=== PATIENT | female | born 1965 | race Caucasian/White ===

== ENCOUNTER 2016-06-09 12:49 | Emergency (ER) | payer OTHER ==
[~2016-06-09] VITALS: Ht 157.5 cm; Wt 52.0 kg
[~2016-06-09 12:49] MED LIST: DICY10CA60 PO; DIVA500T7 PO; LEVO25TA50 PO; LEVO500T72 PO; NITR-58 PO; ONDA4TAB14 PO; PRED20 PO
[2016-06-09 12:55] VITALS: Ht 157.5 cm; Wt 52.0 kg
[2016-06-09] MEDS ORDERED: LORAZEPAM 1 MG TAB PO ONE (14:00)
--- NOTE | 2016-06-09 14:08 | ERD ---
ER Documentation Chief Complaint Date/Time DATE: 06/09/16 TIME: 14:08 Chief Complaint pt bib son with possible allergic reaction to levaquin HPI This is a 51-year-old female with history of COPD, paranoid schizophrenia, bipolar disorder, hypothyroidism, smoking abuse presenting to the emergency room brought in by son stating that she feels as if her mouth is numb bilaterally and that she has slurred speech because she feels like her throat is closing which comes and goes. Patient states that last for a few seconds and then goes away. Patient was speaking clearly in the ER room. She states that on June she was seen by her primary care doctor in which they gave her Levaquin for possible pneumonia. Patient initially thought that this may be due to a allergic reaction. She denies any trouble breathing, chest pain , rash or itchiness. Patient denies any suicidal ideation or homicidal ideation ROS All systems reviewed and are negative except as per history of present illness. Medications Home Meds Active Scripts Ondansetron (Ondansetron Odt) 4 Mg Tab.rapdis, 4 MG PO Q6H Y for NAUSEA AND/OR VOMITING, #10 TAB Prov:YOHAN CASTANEDA PA-C 05/02/16 Dicyclomine Hcl* (Bentyl*) 10 Mg Capsule, 10 MG PO QID, #12 CAP Prov:YOHAN CASTANEDA PA-C 05/02/16 Nitrofurantoin Monohyd Macrocr* (Macrobid*) 100 Mg Capsr, 100 MG PO BID for 7 Days, CAP Prov:YOHAN CASTANEDA PA-C 05/02/16 Prednisone (Prednisone) 20 Mg Tab, 40 MG PO DAILY for 5 Days, TAB Prov:LALO EVANS MD 07/15/15 Levofloxacin* (Levaquin*) 500 Mg Tablet, 500 MG PO DAILY for 5 Days, TAB Prov:LALO EVANS MD 07/15/15 Reported Medications Levothyroxine Sodium* (Levoxyl*) 25 Mcg Tablet, PO BEFORE BREAKFAST, #30 TAB 07/12/15 Divalproex Sodium* (Depakote*) 500 Mg Tablet.dr, 500 MG PO BID, #120 TAB 07/12/15 Allergies Allergies: Coded Allergies: Penicillins (Verified Allergy, Severe, SWOLLEN THROAT, 04/05/16) PMhx/Soc History of Surgery: Yes (SOILA ) Anesthesia Reaction: No Hx Neurological Disorder: No Hx Respiratory Disorders: No Hx Cardiac Disorders: Yes (HTN) Hx Psychiatric Problems: Yes (SCHIZOPHRENIC, BIPOLAR) Hx Miscellaneous Medical Probl: Yes (HYPOTHYROIDISM, ) Hx Alcohol Use: No Hx Substance Use: No Hx Tobacco Use: Yes (1/2 PACK PER DAY) Smoking Status: Current every day smoker Physical Exam Vitals Vital Signs Date Time Temp Pulse Resp B/P Pulse Ox O2 Delivery O2 Flow Rate FiO2 06/09/16 12:55 98.3 64 20 128/70 96 Physical Exam GENERAL: well-developed/well-nourished, in no apparent distress, non-toxic appearing HENT: NC/AT, bilateral tympanic membrane is normal with good cone of light, nares patent, patient did not have any teeth EYES: Conjunctiva normal, PERRLA, EOMI, no nystagmus noted NECK: Supple, no lymphadenopathy PULM: CTA bilaterally, no rales, rhonchi, or wheezing heard CV: Normal S1S2, RRR, good capillary refill GI: Soft, non-distended, normal bowel sounds, non-tender BACK: No midline tenderness, no masses, No CVAT EXT: No clubbing, cyanosis, or edema NEURO: Alert and orientated to person, place, and time. CN II-IIX intact. Gait and coordination were normal. Hand oyster preparer strength were equal and within normal limits SKIN: Intact, normal turgor PSYCH: Normal mood and mentation, patient denied SI Result Diagram: 06/09/16 1439 06/09/16 1439 Results 24 hrs Laboratory Tests Test 06/09/16 14:39 Alanine Aminotransferase (ALT/SGPT) 22IU/L Albumin 3.6g/dl Albumin/Globulin Ratio 1.28 Alkaline Phosphatase 77IU/L Anion Gap 18 Aspartate Amino Transf (AST/SGOT) 18IU/L Basophils # 0.010^3/ul Basophils % 0.3% Blood Urea Nitrogen 7mg/dl Calcium Level 9.2mg/dl Carbon Dioxide Level 30mmol/L Chloride Level 101mmol/L Creatinine 0.72mg/dl Direct Bilirubin 0.00mg/dl Eosinophils # 0.210^3/ul Eosinophils % 2.9% Globulin 2.80g/dl Glucose Level 96mg/dl Hematocrit 44.7% Hemoglobin 15.2g/dl Indirect Bilirubin 0.6mg/dl Lymphocytes # 1.810^3/ul Lymphocytes % 23.4% Mean Corpuscular Hemoglobin 30.6pg Mean Corpuscular Hemoglobin Concent 34.1g/dl Mean Corpuscular Volume 89.8fl Mean Platelet Volume 7.9fl Monocytes # 0.810^3/ul Monocytes % 10.1% Neutrophils # 4.910^3/ul Neutrophils % 63.3% Nucleated Red Blood Cells # 0.010^3/ul Nucleated Red Blood Cells % 0.0/100WBC Platelet Count 92194^3/UL Potassium Level 4.2mmol/L Red Blood Count 4.9810^6/ul Red Cell Distribution Width 13.1% Sodium Level 145mmol/L Total Bilirubin 0.6mg/dl Total Protein 6.4g/dl Troponin I < 0.012ng/ml White Blood Count 7.710^3/ul Current Medications Medications (Trade) Dose Ordered Sig/Wilmar Route PRN Reason Start Time Stop Time Status Last Admin Dose Admin Lorazepam (Ativan) 1 mg ONCE ONCE PO 06/09/16 14:00 06/09/16 14:01 DC 06/09/16 14:27 PROCEDURE: XR Chest. CLINICAL INDICATION: Cough TECHNIQUE: A single portable view of the chest was obtained. COMPARISON: 07/12/2015 FINDINGS: The cardiomediastinal silhouette is within normal limits. The lungs and pleural spaces are clear. The soft tissues and osseous structures are unremarkable. IMPRESSION: No acute cardiopulmonary disease. RPTAT: HPNM Physician Ramon Date Time Electronically viewed and signed by Enrique Dillard Physician on 06/09/2016 14 :12 / CC: HYACINTH CAZARES PA-C Procedures/MDM This is a 51-year-old female with history of COPD, paranoid schizophrenia, bipolar disorder, hypothyroidism, smoking abuse presenting to the emergency room brought in by son stating that she feels as if her mouth is numb bilaterally and that she has slurred speech because she feels like her throat is closing which comes and goes. I have a low suspicion for anaphylaxis, TIA, stroke, ACS. Patient had a normal neurological exam in the ED, she was speaking clearly, patient did seem to be clinically anxious. I have given patient 1 mg Ativan p.o. and reassessed her and she felt a lot better and symptoms resolved. I have consulted my supervising physician Dr. Daigle who also evaluated the patient and spent lengthy discussion speaking to the patient and son. CXR: No acute cardiopulmonary disease. EKG: read and signed off by myself and Dr. Daigle Rate/Rhythm: Normal Sinus Rhythm at 87 bpm QRS, ST, T-waves: T-wave inversion in V1 and aVR Impression: No evidence of ischemia or arrhythmia Troponin negative Lab work was drawn. CBC did not show any evidence of leukocytosis or anemia. CMP did not show any evidence of renal, liver, or electrolyte abnormalities. Lipase was normal. Patient is suitable to follow-up with her primary care physician for further evaluation management. Discussed return to the ER for any worsening signs or symptoms. Patient understands and agrees with this plan. Dr. Daigle was consulted and evaluated patient and agrees with plan above Departure Diagnosis: Primary Impression: Jaw pain Condition: Stable HYACINTH CAZARES PA-C Jun 09, 2016 14:08
--- NOTE | 2016-06-09 14:12 | RADRPT ---
PROCEDURE: XR Chest. CLINICAL INDICATION: Cough TECHNIQUE: A single portable view of the chest was obtained. COMPARISON: 07/12/2015 FINDINGS: The cardiomediastinal silhouette is within normal limits. The lungs and pleural spaces are clear. The soft tissues and osseous structures are unremarkable. IMPRESSION: No acute cardiopulmonary disease. RPTAT: HPNM Physician Ramon Date Time Electronically viewed and signed by Enrique Dillard Physician on 06/09/2016 14:12 /
[2016-06-09 15:22] LABS: BASOPHILS % 0.3 % (0.0-2.0); EOSINOPHILS # 0.2 10^3/ul (0.0-0.5); EOSINOPHILS % 2.9 % (0.0-7.0); HEMATOCRIT 44.7 % (37.0-47.0); HEMOGLOBIN 15.2 g/dl (12.0-16.0); LYMPHOCYTES # 1.8 10^3/ul (0.8-2.9); LYMPHOCYTES % 23.4 % (15.0-51.0); MEAN CORPUSCULAR HEMOGLOBIN 30.6 pg (29.0-33.0); MEAN CORPUSCULAR HGB CONC 34.1 g/dl (32.0-37.0); MEAN CORPUSCULAR VOLUME 89.8 fl (82.0-101.0); MEAN PLATELET VOLUME 7.9 fl (7.4-10.4); MONOCYTE # 0.8 10^3/ul (0.3-0.9); MONOCYTES % 10.1 % (0.0-11.0); NEUTROPHIL # 4.9 10^3/ul (1.6-7.5); NEUTROPHILS % 63.3 % (39.0-77.0); PLATELET COUNT 261 10^3/UL (140-440); RED BLOOD COUNT 4.98 10^6/ul (4.20-5.40); RED CELL DISTRIBUTION WIDTH 13.1 % (11.5-14.5); UNCORRECTED WBC 7.7 10^3/ul (4.8-10.8); WHITE BLOOD COUNT 7.7 10^3/ul (4.8-10.8)
[2016-06-09 15:26] LABS: ALBUMIN 3.6 g/dl (3.3-4.9); POTASSIUM 4.2 mmol/L (3.5-5.1)
[2016-06-09 15:28] LABS: CREATININE 0.72 mg/dl (0.44-1.00)
[2016-06-09 15:29] LABS: BILIRUBIN,INDIRECT 0.6 mg/dl (0-1.1); BILIRUBIN,TOTAL 0.6 mg/dl (0.2-1.3); CALCIUM 9.2 mg/dl (8.4-10.2); TOTAL PROTEIN 6.4 g/dl (6.1-8.1)
[2016-06-09 15:30] LABS: ALBUMIN/GLOBULIN RATIO 1.28
[2016-06-09 15:31] LABS: CONDITION 1
[2016-06-09 16:00] VITALS: BP 131/84; PULSE 101; RESP 20
== END 2016-06-09 16:01 | disposition home or self-care (01) ==
LOC: FTE 12:49
DX: R68.84 Jaw pain (principal); F17.210 Nicotine dependence, cigarettes, uncomplicated; E03.9 Hypothyroidism, unspecified; I10 Essential (primary) hypertension; J44.9 Chronic obstructive pulmonary disease, unspecified
CPT/HCPCS: 71010; 80053; 84484; 85025; 93005; Z7502; Z7610

== ENCOUNTER 2016-06-20 10:38 | Outpatient (CLI) | payer OTHER ==
[~2016-06-20] VITALS: Ht 157.5 cm; Wt 46.8 kg
[2016-06-20 10:52] VITALS: BP 130/83; PULSE 78; RESP 18; Ht 157.5 cm; Wt 46.8 kg
--- NOTE | 2016-06-20 12:46 | CONS ---
[facility] INITIAL OUTPATIENT CONSULTATION NOTE DATE OF CONSULTATION: 06/20/2016 PLACE OF SERVICE: [facility] ASSESSMENT AND PLAN: A very pleasant but unfortunate 51-year-old lady with multiple comorbidities including schizophrenia and homeless status, and a number of other issues as outlined above, who recently underwent a laparoscopic cholecystectomy that was followed by placement of percutaneous drains that were removed a week to 10 days after placement, possibly indicating bile leak versus postoperative infection versus noninfected fluid collection that was drained, as well as internal placement of stents that were done endoscopically in the common bile duct. Currently, the patient appears to be very stable and I do not see any indication for surgical intervention. It is very important for the patient to have her internal common bile duct stents removed in a timely fashion so that we can avoid possible cholangitis or stone formation or further issues with pancreatitis. This should be done by one of our local gastroenterologists or at a minimum at [facility] or the [facility]. Extremely important for the patient to have assistance in getting access to this service since the patient is in a compromised state socially, and I will ask my office to please assist with this as much as possible. I explained all of this to the patient in detail and answered all her questions to the best of my ability. The patient appeared to understand and agreed with the plans. With above assessment I have recommended the followin. The patient to have endoscopy for removal of her common bile duct stents. 2. Continue outpatient medical management of her multiple comorbid issues. 3. Follow up with us on an as needed basis. Thank you again for allowing us to participate in the care of this very pleasant lady and I am certain her wonderful family. If there are any questions , please feel free to call me at [phone]. TOTAL VISIT TIME: 45 minutes, of which more than half was spent in face-to- face discussion with the patient as well as coordination of care between multiple physicians and providers. Updated clinical summary: A very pleasant 51-year-old lady with multiple comorbidities including a homeless status, schizophrenia controlled with Depakote, hypothyroidism and iron deficiency anemia who underwent laparoscopic cholecystectomy at [facility] on 04/05/2016 for symptomatic cholelithiasis that per report was complicated by either a leak or an abscess that was discovered a few days later when the patient was traveling to [facility]. Per report ( records missing) of the patient, the patient underwent drainage catheter placement, both percutaneously x2 and ERCP and stent placement at [facility] on 04/09/2016. The patient reported having the tubes for a week or 10 days, at which point the output had dropped down to very little amounts and it was mainly brownish fluid that was coming out. This was removed by the patient' s primary care physician, Dr. Sunshine, on 04/19/2016. COMORBIDITIES: 1. Schizophrenia, controlled with medications (Depakote). 2. Smoker status. 3. Hypertension. 4. Anemia. 5. Symptomatic cholelithiasis, status post laparoscopic cholecystectomy 2015 with reported complication of leak or infection requiring both percutaneous drainage as well as internal common bile duct stenting in [place] a few days after the operation (04/09/2016) and subsequent removal of the percutaneous drains; still has internal common bile duct stent as of 2016. 5. Chronic obstructive pulmonary disease. 6. History of upper respiratory infection. 7. Hypothyroidism. 8. History of sepsis. 9. Hyponatremia during her hospitalization, 07/2015. 10. Debilitated state socially. 11. History of scabies. HISTORY OF PRESENT ILLNESS: The patient is a very pleasant 51-year-old lady with above-mentioned multiple comorbidities who was kindly referred to us for evaluation of abdominal pain. She has a complicated recent surgical history as mentioned above. Note that I did not have part of the history that what happened at [facility] and most of this is from patient's report herself. We do have images of ERCP placement of double pigtail catheters and that were done at [facility] on 04/09/2016. The patient herself reports no major nausea or vomiting, fevers or chills or change in appetite. Because of her homeless state, she eats intermittently and her BMI is 18.9. She does not report any blood in stool or urine and for the most part, a fairly negative review of systems. The pain itself is described as a vague left mid to upper quadrant abdominal pain. She has not noticed any changes in her bowel or bladder habits. There are no exacerbating factors or alleviating factors. ALLERGIES: PENICILLIN. MEDICATIONS: 1. Bentyl. 2. Depakote. 3. Levoxyl. 4. Ondansetron. SOCIAL HISTORY: The patient is homeless and shares a car with her son. There are some stresses in her life other than being homeless, that include her son's girlfriend who apparently has started to use drugs and the patient is experiencing stress over this relationship. She is an everyday smoker. She does not report significant drinking or any intravenous drug use. FAMILY HISTORY: No major medical, surgical or oncologic problems reported in the family. REVIEW OF SYSTEMS: Other than the above-mentioned, there are no other pertinent positives or pertinent negatives in a complete 14-point review of systems. PHYSICAL EXAMINATION: GENERAL: The patient appears to be a very pleasant lady of non- descent, appearing stated age or older, sitting in a chair comfortably in no acute distress. She is somewhat disheveled artery, although mildly. BMI 18.9. VITAL SIGNS: Temperature 98.2, blood pressure 130/83, pulse 78, respiratory rate 18, pulse oximetry 94% on room air. HEENT: Normocephalic and atraumatic. Extraocular muscles and hearing are grossly intact bilaterally and symmetrically. Sclerae are nonicteric. Oral cavity is clear; oral mucosa appeared to be pink and moist. Dentition: poor; no teeth. NECK: Supple. There is no lymphadenopathy or JVD. There is no submental, submandibular or supraclavicular lymphadenopathy. CHEST: Rises symmetrically with each breath; patient is breathing comfortably. There are no audible wheezes, rales or rhonchi on the gross exam. HEART: Pulse is regular and palpable on the left wrist. Capillary refill was normal. Carotid pulses are palpable bilaterally and symmetrically in the neck. EXTREMITIES: Lower extremities contain no pitting edema around the ankles bilaterally and symmetrically. ABDOMEN: Shows a well-healed laparoscopic cholecystectomy surgical scars without any evidence of erythema, edema, discharge or hernia. No changes with Valsalva maneuver. No erythema of the skin. No evidence of organomegaly, caput medusae, engorged subcutaneous veins, or ascites. Otherwise, the abdomen is soft, and for the most part nontender. SKIN: Appears to be pink and feels warm to touch. NEUROLOGIC: Awake, alert, and follows commands appropriately. LABORATORY DATA: Latest were from 06/09/2016 showing white blood cell count 7.7 , hemoglobin 16.2, platelets 261. Electrolytes: Sodium 145, CO2 30. Hemoglobin A1c 5.5. Lactic acid 1, magnesium 1.6, total bilirubin 0.6, AST 18, ALT 22, alkaline phosphatase 77, albumin 3.6, lipase 63. Lipid panels were acceptable and normal. Urinalysis 05/02/2016 did show 2+ urine bilirubin, moderate bacteria, trace leukocyte esterase and no nitrite. IMAGING: The patient had an abdominal and pelvic CT scan 05/02/2016 that showed distal ileitis with differential of infectious and inflammatory (Crohn's disease) to be considered. There was mild distention of the distal ileal loops as well, suggestive of ileus. No bowel perforation or gross evidence of bowel obstruction seen. Gallbladder was surgically absent. Common bile duct stent was in place and there was no biliary dilatation identified. Aortoiliac atherosclerotic calcifications were present and there were no masses or lymphadenopathy identified. There was also a series of pictures from ERCP and stent placement that had a label of [facility] on them dated 04/09/2016. Dictated By: ROBERTA NORTON MD KK/NTS Conf#: [id number] DID#: [id number] CC: Yury Sunshine MD; Rasheed Yip MD;*EndCC* MTDD
== END 2016-06-20 16:43 | disposition home or self-care (01) ==
LOC: HPC 10:38
PROVIDERS: ATTEND Transplant Surgery
DX: F20.9 Schizophrenia, unspecified (principal); F17.200 Nicotine dependence, unspecified, uncomplicated; I10 Essential (primary) hypertension; D64.9 Anemia, unspecified; K80.20 Calculus of gallbladder without cholecystitis without obstruction; J44.9 Chronic obstructive pulmonary disease, unspecified; E03.9 Hypothyroidism, unspecified; Z88.0 Allergy status to penicillin; Z59.0 Homelessness
CPT/HCPCS: G0463

== ENCOUNTER 2017-02-23 17:28 | Emergency (ER) | payer OTHER ==
[~2017-02-23] VITALS: Ht 157.5 cm; Wt 56.0 kg
[~2017-02-23 17:28] MED LIST changes: -LEVO500T72 PO; -NITR-58 PO; -PRED20 PO
[2017-02-23 17:29] VITALS: Ht 157.5 cm; Wt 56.0 kg
[2017-02-23] MEDS ORDERED: SOD CHLORIDE 0.9% 1,000 ML IV STA (18:03)
[2017-02-23] MEDS ORDERED: morphine 2 MG INJ IV STA (18:03)
[2017-02-23] MEDS ORDERED: ONDANSETRON 4 MG INJ IV STA (18:03)
--- NOTE | 2017-02-23 18:09 | ERD ---
ER Documentation Chief Complaint Chief Complaint abdominal pain and headache today HPI 51-year-old homeless female who presents the emergency room complaining of abdominal pain and headache. The patient is a poor historian. She describes generalized abdominal pain that started today with 2 episodes of loose stool. She denies vomiting. No chest pain or shortness of breath. She also describes mild frontal forehead headache that is 3 out of 10. She does not regularly get headaches. She denies any falls or trauma or recent alcohol abuse. Does have a prior history of cholecystectomy that was complicated by perforation. ROS All systems reviewed and are negative except as per history of present illness. Medications Home Meds Discontinued Reported Medications Levothyroxine Sodium* (Levoxyl*) 25 Mcg Tablet, PO BEFORE BREAKFAST, #30 TAB 07/12/15 Divalproex Sodium* (Depakote*) 500 Mg Tablet.dr, 500 MG PO BID, #120 TAB 07/12/15 Discontinued Scripts Ondansetron (Ondansetron Odt) 4 Mg Tab.rapdis, 4 MG PO Q6H Y for NAUSEA AND/OR VOMITING, #10 TAB Prov:YOHAN CASTANEDA PA-C 05/02/16 Dicyclomine Hcl* (Bentyl*) 10 Mg Capsule, 10 MG PO QID, #12 CAP Prov:YOHAN CASTANEDA PA-C 05/02/16 Allergies Allergies: Coded Allergies: Penicillins (Verified Allergy, Severe, SWOLLEN THROAT, 02/23/17) PMhx/Soc History of Surgery: Yes (SOILA ) Anesthesia Reaction: No Hx Neurological Disorder: No Hx Respiratory Disorders: No Hx Cardiac Disorders: Yes (HTN) Hx Psychiatric Problems: Yes (SCHIZOPHRENIC, BIPOLAR) Hx Miscellaneous Medical Probl: Yes (HYPOTHYROIDISM, ) Hx Alcohol Use: No Hx Substance Use: No Hx Tobacco Use: Yes (1/2 PACK PER DAY) FmHx Family History: No diabetes Physical Exam Vitals Vital Signs Date Time Temp Pulse Resp B/P Pulse Ox O2 Delivery O2 Flow Rate FiO2 02/23/17 17:29 98.9 85 18 164/100 94 Physical Exam General: Disheveled but no significant distress Head: Normocephalic, atraumatic. Eyes: Pupils equally reactive, EOM intact ENT: Moist mucous membranes Neck: Supple, no lymphadenopathy Respiratory: Lungs clear bilaterally, no distress Cardiovascular: RRR, no murmurs, rubs, or gallops Abdominal: Soft, non-tender, non-distended, no peritoneal signs : Deferred MSK: No edema, no unilateral swelling, 5/5 strength Neurologic: Alert and oriented, moving all extremities, normal speech, no focal weakness, no cerebellar signs Skin: No rash Psych: Normal mood Result Diagram: 02/23/17180902/23/171809 Results 24 hrs Laboratory Tests Test 02/23/17 18:10 White Blood Count 11.210^3/ul Red Blood Count 5.5710^6/ul Hemoglobin 17.1g/dl Hematocrit 50.3% Mean Corpuscular Volume 90.3fl Mean Corpuscular Hemoglobin 30.7pg Mean Corpuscular Hemoglobin Concent 34.0g/dl Red Cell Distribution Width 12.8% Platelet Count 34464^3/UL Mean Platelet Volume 9.0fl Neutrophils % 66.2% Lymphocytes % 24.5% Monocytes % 6.7% Eosinophils % 1.8% Basophils % 0.5% Nucleated Red Blood Cells % 0.0/100WBC Neutrophils # 7.410^3/ul Lymphocytes # 2.710^3/ul Monocytes # 0.810^3/ul Eosinophils # 0.210^3/ul Basophils # 0.110^3/ul Nucleated Red Blood Cells # 0.010^3/ul Sodium Level 143mmol/L Potassium Level 4.2mmol/L Chloride Level 108mmol/L Carbon Dioxide Level 23mmol/L Anion Gap 16 Blood Urea Nitrogen 17mg/dl Creatinine 0.89mg/dl Glucose Level 96mg/dl Calcium Level 9.5mg/dl Total Bilirubin 1.3mg/dl Direct Bilirubin 0.00mg/dl Indirect Bilirubin 1.3mg/dl Aspartate Amino Transf (AST/SGOT) 21IU/L Alanine Aminotransferase (ALT/SGPT) 25IU/L Alkaline Phosphatase 88IU/L Total Protein 8.1g/dl Albumin 4.6g/dl Globulin 3.50g/dl Albumin/Globulin Ratio 1.31 Lipase 128U/L Current Medications Medications (Trade) Dose Ordered Sig/Wilmar Route PRN Reason Start Time Stop Time Status Last Admin Dose Admin Sodium Chloride (NS) 1,000 ml @ 1,000 mls/hr Q1H STAT IV 02/23/17 18:03 02/23/17 19:02 DC 02/23/17 18:25 Morphine Sulfate (morphine) 2 mg ONCE STAT IV 02/23/17 18:03 02/23/17 18:05 DC 02/23/17 18:25 Ondansetron HCl (Zofran Inj) 4 mg ONCE STAT IV 02/23/17 18:03 02/23/17 18:05 DC 02/23/17 18:25 Dexamethasone (Decadron) 10 mg ONCE ONCE IV 02/23/17 19:30 02/23/17 19:31 Procedures/MDM EKG, MONITORS, & DIAGNOSTIC IMAGING: CT abdomen and pelvis: IMPRESSION: 1. Wall thickening of multiple distal ileal loops extending to the terminal ileum, mildly less pronounced when compared the exam from 05/02/2016, which is highly suspicious for inflammatory bowel disease (Crohn's disease). Similar luminal narrowing at the terminal ileum. No evidence of bowel obstruction. 2. Vascular calcifications consistent with atherosclerosis. RPTAT: HLBP CT brain: No acute intracranial process per radiologist LAB INTERPRETATION: No significant leukocytosis no evidence of hepatobiliary obstruction. MEDICAL DECISION MAKING: The patient is describing headache and abdominal pain. She is homeless. There is some concern for possible malingering given her review of electronic medical record. However, the patient does have a complicated history of gallbladder surgery with perforation. For this reason CT imaging of the abdomen and pelvis and head would be appropriate. The patient will benefit from IV fluids and laboratory testing. The patient's headache is unlikely related to serious etiology. The patient does not exhibit any clinical signs or symptoms, and has no risk factors to suggest headache etiology such as subarachnoid hemorrhage, acute vertebral or carotid dissection, intracranial mass, epidural, subdural hematoma, dural venous sinus thrombosis, giant cell arteritis, or pseudotumor cerebri. ER COURSE: Patient was given IV fluids and a small dose pain medication. She is resting comfortably. Her CT imaging is concerning for possible undiagnosed inflammatory bowel disease without complication. The patient will be provided 10 mg of Decadron. She is homeless and unlikely to have excellent follow-up therefore I believe long-acting steroid is reasonable in this case. The patient does not require antibiotics, no fever, no significant leukocytosis. The patient was informed of the CT findings and advised that she needs to follow -up with a specialist. She was given referral to [facility] services in the [facility]. At this time the patient is well-appearing and resting comfortably. She is safe for discharge. I kept the patient and/or family informed of laboratory and diagnostic imaging results throughout the emergency room course. DISPOSITION PLAN: We discussed follow up with the patient's primary care doctor within 24 to 48 hours as needed. We also discussed return to the emergency room for worsening symptoms or worsening condition. Outpatient referral: Outpatient gastroenterology follow-up Discharge Medications: None required Departure Diagnosis: Primary Impression: Abdominal pain Abdominal location: generalized Qualified Code: R10.84 - Generalized abdominal pain Additional Impressions: Headache Headache type: unspecified Headache chronicity pattern: acute headache Intractability: not intractable Qualified Code: R51 - Acute nonintractable headache, unspecified headache type Inflammatory bowel disease Condition: Stable MELISSA LOYA MD Feb 23, 2017 18:09
[2017-02-23 18:24] LABS: BASOPHIL # 0.1 10^3/ul (0.0-0.1); BASOPHILS % 0.5 % (0.0-2.0); EOSINOPHILS # 0.2 10^3/ul (0.0-0.5); EOSINOPHILS % 1.8 % (0.0-7.0); HEMATOCRIT 50.3 % (37.0-47.0); HEMOGLOBIN 17.1 g/dl (12.0-16.0); LYMPHOCYTES # 2.7 10^3/ul (0.8-2.9); LYMPHOCYTES % 24.5 % (15.0-51.0); MEAN CORPUSCULAR HEMOGLOBIN 30.7 pg (29.0-33.0); MEAN CORPUSCULAR VOLUME 90.3 fl (82.0-101.0); MONOCYTE # 0.8 10^3/ul (0.3-0.9); MONOCYTES % 6.7 % (0.0-11.0); NEUTROPHIL # 7.4 10^3/ul (1.6-7.5); NEUTROPHILS % 66.2 % (39.0-77.0); PLATELET COUNT 275 10^3/UL (140-415); RED BLOOD COUNT 5.57 10^6/ul (4.20-5.40); RED CELL DISTRIBUTION WIDTH 12.8 % (11.5-14.5); WHITE BLOOD COUNT 11.2 10^3/ul (4.8-10.8)
[2017-02-23 18:54] LABS: ALBUMIN 4.6 g/dl (3.3-4.9); ALBUMIN/GLOBULIN RATIO 1.31; BILIRUBIN,INDIRECT 1.3 mg/dl (0-1.1); BILIRUBIN,TOTAL 1.3 mg/dl (0.2-1.3); CALCIUM 9.5 mg/dl (8.4-10.2); CREATININE 0.89 mg/dl (0.44-1.00); POTASSIUM 4.2 mmol/L (3.5-5.1); TOTAL PROTEIN 8.1 g/dl (6.1-8.1)
--- NOTE | 2017-02-23 19:17 | RADRPT ---
PROCEDURE: CT abdomen and pelvis without contrast. CLINICAL INDICATION: Abdominal pain. TECHNIQUE: CT of the abdomen and pelvis without contrast was performed on a multidetector high-reso lution CT scanner. Coronal and sagittal reformatted images were obtained from the axial source image s. Images were reviewed on a high-resolution PACS workstation. The total exam CTDI equals 6.87 mGy a nd the total exam DLP equals 342.17 mGy-cm. One or more of the following dose reduction techniques were used: - Automated exposure control. - Adjustment of the mA and/or kV according to patient size. - Use of iterative reconstruction technique. COMPARISON: CT dated 05/02/2016. FINDINGS: Visualized lower thorax: The visualized lung bases are clear. The visualized heart is unremarkable. Hepatobiliary system and spleen: The liver is grossly unremarkable. There has been interval removal of an internal biliary stent. There is mild diffuse prominence of the biliary tree, likely related to reservoir effect given the surgical absence of the gallbladder. The spleen is grossly unremarkab le. The pancreas is grossly unremarkable. Adrenal glands and genitourinary system: The adrenal glands are grossly unremarkable. There is no n ephrolithiasis or hydronephrosis. The urinary bladder is grossly unremarkable. The uterus and adnex a are grossly unremarkable. Gastrointestinal system: There are thickened loops of distal ileum extending to the terminal ileum, with similar luminal narrowing at the terminal ileum. There is no evidence of bowel obstruction. Th e colon and remaining bowel loops are normal in caliber and demonstrate no additional wall thickenin g. The appendix is in the right lower quadrant and is unremarkable. Peritoneum, vascular, and lymphatics: There is no free intraperitoneal air, free fluid, or focal dr ainable collection within the abdomen or pelvis. There is no mesenteric or retroperitoneal adenopath y. There are atherosclerotic changes of the aorta, which is nonaneurysmal. Musculoskeletal system and soft tissues: There is moderate to severe degenerative enthesopathy at L 4-5. There are no concerning osseous lesions. The soft tissues are unremarkable. IMPRESSION: 1. Wall thickening of multiple distal ileal loops extending to the terminal ileum, mildly less pron ounced when compared the exam from 05/02/2016, which is highly suspicious for inflammatory bowel dis ease (Crohn's disease). Similar luminal narrowing at the terminal ileum. No evidence of bowel obstru ction. 2. Vascular calcifications consistent with atherosclerosis. RPTAT: HLBP .Alex Ramirez MD, MD Date Time Electronically viewed and signed by .Alex Ramirez MD, MD on 02/23/2017 19:17 .P/
--- NOTE | 2017-02-23 19:19 | RADRPT ---
PROCEDURE: CT Brain without contrast. CLINICAL INDICATION: Headache. TECHNIQUE: CT scan of the brain was performed from the skull base through the vertex without contra st. Coronal and sagittal reformations were performed. The exam CTDI = 45.01 mGy and the DLP = 720.23 mGy-cm. One or more of the following dose reduction techniques were used: - Automated exposure control. - Adjustment of the mA and/or kV according to patient size. - Use of iterative reconstruction technique. COMPARISON: None available FINDINGS: The degree of sulcal and cisternal prominence is within normal limits.There is no hydroce phalus, hemorrhage, herniation, or mass lesion. There is no intra or extra-axial fluid collection. T he denney/white matter differentiation is well preserved. The visualized paranasal sinuses and otomastoid air cells are well developed and pneumatized. The francine [place] calvarium is intact. The surrounding soft tissues are unremarkable. IMPRESSION: 1. No acute intracranial abnormality. 2. The examination is within normal limits for the patient's age. RPTAT: HLBP .Alex Ramirez MD, Date Time Electronically viewed and signed by .Alex Ramirez MD, MD on 02/23/2017 19:19 .P/
[2017-02-23] MEDS ORDERED: DEXAMETHASONE 10 MG/ML 1 ML INJ IV ONE (19:30)
[2017-02-23 19:47] VITALS: BP 121/83; PULSE 77; RESP 14; TEMP 98.9
[2017-02-23 20:07] LABS: ADD UMIC YES; UR ASCORBIC ACID NEGATIVE (NEGATIVE); UR BACTERIA FEW /HPF (NONE SEEN); UR BILIRUBIN (Dip) NEGATIVE (NEGATIVE); UR BLOOD (Dip) 2+ mg/dL (NEGATIVE); UR CLARITY CLEAR (CLEAR); UR COLOR YELLOW (YELLOW); UR GLUCOSE (Dip) NEGATIVE (NEGATIVE); UR KETONES (Dip) NEGATIVE (NEGATIVE); UR LEUKOCYTE ESTERASE (Dip) TRACE Leu/ul (NEGATIVE); UR NITRITE (Dip) NEGATIVE (NEGATIVE); UR RBC 2 /HPF (0-5); UR SPECIFIC GRAVITY (Dip) 1.009 (1.003-1.030); UR SQUAMOUS EPITHELIAL CELL FEW /HPF (FEW); UR TOTAL PROTEIN (Dip) NEGATIVE (NEGATIVE); UR UROBILINOGEN (Dip) NEGATIVE (NEGATIVE)
== END 2017-02-23 19:50 | disposition home or self-care (01) ==
LOC: E/R 17:28
DX: R10.84 Generalized abdominal pain (principal); R51 Headache; I10 Essential (primary) hypertension; E03.9 Hypothyroidism, unspecified; F17.210 Nicotine dependence, cigarettes, uncomplicated
CPT/HCPCS: 36415; 70450; 74176; 80053; 81001; 83690; 85025; 96374; 96375; J1100; J2270; J2405; J7030; Z7502

== ENCOUNTER 2017-04-01 18:16 | Inpatient (IN) | payer OTHER ==
[~2017-04-01] VITALS: Ht 160 cm; Wt 56.9 kg
[2017-04-01] MEDS ORDERED: morphine 4 MG/ML VIAL IV STA (22:54)
[2017-04-01] MEDS ORDERED: ONDANSETRON 4 MG INJ IV STA (22:54)
--- NOTE | 2017-04-01 23:21 | RADRPT ---
PROCEDURE: XR Chest. CLINICAL INDICATION: Shortness of breath. TECHNIQUE: Single frontal view of the chest was obtained COMPARISON: Chest radiograph dated June 09, 2016. FINDINGS: The heart and mediastinum are within normal limits. The lungs are clear. There is no pleural effusion or pneumothorax. The osseous structures are unremarkable IMPRESSION: 1. No acute cardiopulmonary disease. RPTAT:AAJJ Physician Delilah Date Time Electronically viewed and signed by Ashtyn Bishop Physician on 04/01/2017 23:20 QL/
[2017-04-01 23:38] LABS: BASOPHIL # 0.1 10^3/ul (0.0-0.1); BASOPHILS % 0.4 % (0.0-2.0); EOSINOPHILS # 0.1 10^3/ul (0.0-0.5); EOSINOPHILS % 1.1 % (0.0-7.0); HEMATOCRIT 51.6 % (37.0-47.0); HEMOGLOBIN 17.6 g/dl (12.0-16.0); LYMPHOCYTES # 2.1 10^3/ul (0.8-2.9); LYMPHOCYTES % 17.9 % (15.0-51.0); MEAN CORPUSCULAR HEMOGLOBIN 30.6 pg (29.0-33.0); MEAN CORPUSCULAR HGB CONC 34.1 g/dl (32.0-37.0); MEAN CORPUSCULAR VOLUME 89.6 fl (82.0-101.0); MEAN PLATELET VOLUME 9.5 fl (7.4-10.4); MONOCYTE # 0.6 10^3/ul (0.3-0.9); NEUTROPHIL # 8.7 10^3/ul (1.6-7.5); NEUTROPHILS % 75.3 % (39.0-77.0); PLATELET COUNT 246 10^3/UL (140-415); RED BLOOD COUNT 5.76 10^6/ul (4.20-5.40); RED CELL DISTRIBUTION WIDTH 12.5 % (11.5-14.5); WHITE BLOOD COUNT 11.6 10^3/ul (4.8-10.8)
[2017-04-01 23:57] LABS: INR 0.94; PROTIME 12.6 Sec (12.2-14.2)
[2017-04-01 23:58] LABS: PARTIAL THROMBOPLASTIN TIME 33.2 Sec (25.0-35.0)
[2017-04-02 00:13] LABS: TROPONIN-I < 0.012 ng/ml (0.00-0.12)
[2017-04-02 00:24] LABS: ALANINE AMINOTRANSFERASE 24 IU/L (13-69); ALBUMIN 4.6 g/dl (3.3-4.9); ALBUMIN/GLOBULIN RATIO 1.31; ALKALINE PHOSPHATASE 88 IU/L (42-121); ANION GAP 19 (8-16); ASPARTATE AMINO TRANSFERASE 21 IU/L (15-46); BILIRUBIN,INDIRECT 1.6 mg/dl (0-1.1); BILIRUBIN,TOTAL 1.6 mg/dl (0.2-1.3); BLOOD UREA NITROGEN 14 mg/dl (7-20); CALCIUM 10.1 mg/dl (8.4-10.2); CARBON DIOXIDE 25 mmol/L (21-31); CHLORIDE 106 mmol/L (97-110); CREATININE 0.84 mg/dl (0.44-1.00); GLUCOSE 111 mg/dl (70-220); POTASSIUM 4.3 mmol/L (3.5-5.1); SODIUM 146 mmol/L (135-144); TOTAL PROTEIN 8.1 g/dl (6.1-8.1)
--- NOTE | 2017-04-02 00:38 | RADRPT ---
PROCEDURE: CT Abdomen and Pelvis without contrast. CLINICAL INDICATION: Pain. TECHNIQUE: CT scan of the abdomen and pelvis was performed on a multidetector slice CT scanner. No intravenous contrast material was utilized. Sagittal and coronal reformatted images were obtained fr om the axial source images. Images were reviewed on a high-resolution PACS workstation. Exam CTDlvol = 7.6 mGy and DLP = 409 Gy-cm. One of the following 3 dose reduction techniques were used: Automate d exposure control; adjustment of the mA and/or kV according to patient size; or use of iterative re construction technique. DICOM images are available. COMPARISON: 02/23/2017. FINDINGS: There is no obstruction or ileus. There is interval increase in mild ileum distension with diffuse wall thickening to the level of the terminal ileum. There is interval increase in diffuse colonic wa ll thickening with indistinct margins. The appendix is normal in appearance... There is no evidence for diverticulitis. There is trace free fluid. The liver is overall normal in size. No intrahepatic lesions are identified. The gallbladder has bee n removed. There is no definite biliary ductal dilation. Pancreas is normal in appearance. The splee n is unremarkable.. There are no adrenal masses. The aorta is normal caliber. Atherosclerotic vascu lar calcifications are present. Kidneys are normal in appearance without hydronephrosis, mass or calculus.. Ureters are of normal ca liber and without evidence for an obstructing calculus. The urinary bladder is normal in appearance .. Uterus unremarkable. The ovaries are not well characterized. Limited evaluation of the lung bases is unremarkable. There are degenerative changes of the lumbar spine. IMPRESSION: 1. Interval increased small bowel dilatation with wall thickening and extending to the terminal ile um. Mild diffuse colonic wall thickening with surrounding infiltration. Trace free fluid. Appearance is consistent with a enteritis and colitis and is suspicious for inflammatory bowel disease includi ng Crohn disease. 2. No evidence for appendicitis. 3. No evidence for diverticulitis. 4. Status post cholecystectomy. 5. Atherosclerotic vascular calcifications. 6. Otherwise no change. RPTAT: HMVK .Nato Moctezuma MD, MD Date Time Electronically viewed and signed by .Nato Moctezuma MD, on 04/02/2017 00:38 .K/
[2017-04-02] MEDS ORDERED: metroNIDAZOLE 500 MG/NS (PMX) 100 ML IVPB STA (02:45)
[2017-04-02] MEDS ORDERED: LEVOFLOXACIN 750MG/D5W (PMX) 150 ML IVPB STA (02:45)
[2017-04-02] MEDS ORDERED: NACL 0.9% 3 ML SYG IV SCH (03:00)
--- NOTE | 2017-04-02 03:11 | HP ---
Date/Time of Note Date/Time of Note DATE: 04/02/17 TIME: 03:10 Assessment/Plan VTE Prophylaxis VTE Prophylaxis Intervention: SCD's Assessment/Plan Chief Complaint/Hosp Course This is a 51-year-old female being admitted to the [facility] floor for: #1 acute colitis: Suspicious for possible Crohn's flare. Patient did present with a mildly elevated white blood cell count. And she was started on antibiotics in the ED. at the current time I will continue the antibiotics until evaluated by GI. CAT scan findings were consistent with possible findings of inflammatory bowel disease. With a history of Crohn's disease I will also at the current time start the patient on budesonide 9 mg p.o. daily. Will consult GI for further treatment strategy. We will keep the patient n.p.o. except meds. Provide normal saline IV fluid hydration. Will provide pain control with morphine. Also order stool studies including ANCA. #2 history of Crohn's: Will order stool studies including ANCA. Will consult GI. Patient is ready been started on antibiotics and steroids. #3 hypertension: We will continue to monitor patient's blood pressure. Patient currently is not on any home medications. Will initiate if indicated. #4 COPD: We will continue to monitor. Patient is currently not on any home medications. Will initiate inhalers if indicated. #5 paranoid schizophrenia: Patient does state that she takes medications but she does not know the names. Will attempt to find out the name and dosages of her medications. #6 DVT and GI prophylaxis: SCDs, Protonix. Further treatment G will be provided as per the clinical course. Will also consult case management/social work to assist in finding out patient's home medications. Problems: HPI/ROS Admit Date/Time Admit Date/Time Hx of Present Illness Chief complaint: Diarrhea and abdominal cramps 3 days This is a 53-year-old pleasant homeless female with a history of Crohn disease who presents to the ED complaining of diarrhea and abdominal pain 3 days. Patient states that approximately 3 days ago she started noticing diarrhea and stomach cramps along with nausea and vomiting. Patient denies any fever. She denies any hematemesis or hematochezia or bright red blood per rectum. She states that she was diagnosed some years ago with Crohn's disease. She states that she did have a colonoscopy 1 year ago under different hospital. Allergies: Penicillin Medications: Unknown, states that she is only on 2 medications for her schizophrenia but she does not know the names will need to confirm. ROS Const: As per HPI Eyes : No pain discharge or redness or change in visual acuity ENT: No pain, sore throat, congestion, congestion, dysphagia or discharge Respiratory: No shortness of breath, cough, sputum, wheezing, or pleuritic pain Cardiovascular: No chest pain, palpitation, PND, or edema GI : As per HPI Genitourinary: No dysuria, hematuria, flank pain , discharge or CVA tenderness Musculoskeletal: No joint pain, back pain, neck pain, restricted range of motion in neck or joints Skin: No rash, bruising or hives Neuro: No headache, dizziness, syncope, seizure, focal weakness Endocrine: No polyuria, polydipsia, temperature intolerance Psych: No hallucination, depression, anxiety or suicidal ideation PMH/Family/Social Past Medical History Crohn's disease, hypertension, COPD, paranoid schizophrenia Past Surgical History Past Surgical Hx: cholecystectomy Family History Significant Family History: no pertinent family hx Social History Alcohol Use: none Smoking Status: Current every day smoker (1 pack per day 20 years) Drug Use: none Exam/Review of Systems Vital Signs Vitals Vital Signs Date Time Temp Pulse Resp B/P Pulse Ox O2 Delivery O2 Flow Rate FiO2 04/02/17 02:35 70 16 116/75 92 Room Air 04/01/17 23:19 98.1 Exam Exam General: She is a pleasant female lying in bed in no acute distress HEENT: Atraumatic, normocephalic. The pupils are equal, round and reactive. Extraocular motor are intact Neck: Supple with full range of motion. No rigidity or meningismus Chest: Nontender Lungs: Clear to auscultation bilaterally no crackles rales or wheezing Heart: Normal S1-S2, Regular rhythm and rate. No murmur, S3, or S4 Abdomen: Soft, nontender, nondistended, normal bowel sounds Extremities: Normal to inspection, no edema no cyanosis Neurologic: Normal mental status, speech normal, cranial nerves II through XII are intact, motor and sensory are intact, no focal weakness psych: No auditory or visual hallucinations at this time. Additional Comments PROCEDURE: CT Abdomen and Pelvis without contrast. CLINICAL INDICATION: Pain. TECHNIQUE: CT scan of the abdomen and pelvis was performed on a multidetector slice CT scanner. No intravenous contrast material was utilized. Sagittal and coronal reformatted images were obtained from the axial source images. Images were reviewed on a high-resolution PACS workstation. Exam CTDlvol = 7.6 mGy and DLP = 409 Gy-cm. One of the following 3 dose reduction techniques were used: Automated exposure control; adjustment of the mA and/or kV according to patient size; or use of iterative reconstruction technique. DICOM images are available. COMPARISON: 02/23/2017. FINDINGS: There is no obstruction or ileus. There is interval increase in mild ileum distension with diffuse wall thickening to the level of the terminal ileum. There is interval increase in diffuse colonic wall thickening with indistinct margins. The appendix is normal in appearance... There is no evidence for diverticulitis. There is trace free fluid. The liver is overall normal in size. No intrahepatic lesions are identified. The gallbladder has been removed. There is no definite biliary ductal dilation. Pancreas is normal in appearance. The spleen is unremarkable.. There are no adrenal masses. The aorta is normal caliber. Atherosclerotic vascular calcifications are present. Kidneys are normal in appearance without hydronephrosis, mass or calculus.. Ureters are of normal caliber and without evidence for an obstructing calculus. The urinary bladder is normal in appearance.. Uterus unremarkable. The ovaries are not well characterized. Limited evaluation of the lung bases is unremarkable. There are degenerative changes of the lumbar spine. IMPRESSION: 1. Interval increased small bowel dilatation with wall thickening and extending to the terminal ileum. Mild diffuse colonic wall thickening with surrounding infiltration. Trace free fluid. Appearance is consistent with a enteritis and colitis and is suspicious for inflammatory bowel disease including Crohn disease. 2. No evidence for appendicitis. 3. No evidence for diverticulitis. 4. Status post cholecystectomy. 5. Atherosclerotic vascular calcifications. 6. Otherwise no change. RPTAT: HMVK .Nato Moctezuma MD, Date Time Electronically viewed and signed by .Nato Moctezuma MD, MD on 04/02/2017 00:38 .K/ CC: AMY EDWARDS PROCEDURE: XR Chest. CLINICAL INDICATION: Shortness of breath. TECHNIQUE: Single frontal view of the chest was obtained COMPARISON: Chest radiograph dated June 09, 2016. FINDINGS: The heart and mediastinum are within normal limits. The lungs are clear. There is no pleural effusion or pneumothorax. The osseous structures are unremarkable IMPRESSION: 1. No acute cardiopulmonary disease. RPTAT:AAJJ Ashtyn Bishop Physician Date Time Electronically viewed and signed by Ashtyn Bishop Physician on 04/01/2017 23:20 QL/ CC: AMY EDWARDS Labs Result Diagram: 04/01/17 2300 04/01/17 2300 Medications Medications Current Medications Sodium Chloride (NS) 1,000 ml @ 80 mls/hr [id number] IV ; Start 04/02/17 at 03:00 ; Status UNV Ondansetron HCl (Zofran Inj) 4 mg Q6H PRN IV NAUSEA AND/OR VOMITING; Start at 03:00; Status UNV Acetaminophen (Tylenol Tab) 650 mg Q6H PRN PO PAIN LEVEL 1-3 OR FEVER; Start 04/02/17 at 03:00; Status UNV Morphine Sulfate (morphine) 2 mg Q4H PRN IV SEVERE PAIN LEVEL 7-10; Start at 03:00; Status UNV Pantoprazole (Protonix Iv) 40 mg DAILY@06 IV ; Start 04/02/17 at 06:00; Status UNV JENNIFER ALY Apr 02, 2017 03:11
[2017-04-02 06:01] VITALS: TEMP 98.3
[2017-04-02] MEDS: SOD CHLORIDE 0.9% 1,000 ML IV SCH ×2 (06:11→15:30)
[2017-04-02] MEDS: PANTOPRAZOLE 40 MG INJ IV SCH (06:11)
[2017-04-02 06:40] LABS: BASOPHIL # 0.1 10^3/ul (0.0-0.1); BASOPHILS % 0.7 % (0.0-2.0); EOSINOPHILS # 0.2 10^3/ul (0.0-0.5); EOSINOPHILS % 1.6 % (0.0-7.0); HEMATOCRIT 46.7 % (37.0-47.0); HEMOGLOBIN 15.7 g/dl (12.0-16.0); LYMPHOCYTES % 32.6 % (15.0-51.0); MEAN CORPUSCULAR HEMOGLOBIN 30.5 pg (29.0-33.0); MEAN CORPUSCULAR HGB CONC 33.6 g/dl (32.0-37.0); MEAN CORPUSCULAR VOLUME 90.7 fl (82.0-101.0); MEAN PLATELET VOLUME 9.2 fl (7.4-10.4); MONOCYTE # 0.8 10^3/ul (0.3-0.9); MONOCYTES % 8.1 % (0.0-11.0); NEUTROPHIL # 5.2 10^3/ul (1.6-7.5); NEUTROPHILS % 56.7 % (39.0-77.0); PLATELET COUNT 237 10^3/UL (140-415); RED BLOOD COUNT 5.15 10^6/ul (4.20-5.40); RED CELL DISTRIBUTION WIDTH 12.4 % (11.5-14.5); WHITE BLOOD COUNT 9.2 10^3/ul (4.8-10.8)
[2017-04-02 06:57] LABS: ALBUMIN 3.8 g/dl (3.3-4.9); ALBUMIN/GLOBULIN RATIO 1.22; BILIRUBIN,INDIRECT 1.5 mg/dl (0-1.1); BILIRUBIN,TOTAL 1.5 mg/dl (0.2-1.3); CALCIUM 9.2 mg/dl (8.4-10.2); CHOL/HDL RATIO 2.8 RATIO; CREATININE 0.89 mg/dl (0.44-1.00); MAGNESIUM 1.8 mg/dl (1.7-2.5); POTASSIUM 3.9 mmol/L (3.5-5.1); TOTAL PROTEIN 6.9 g/dl (6.1-8.1)
[2017-04-02 07:26] LABS: THYROID STIMULATING HORMONE 3.19 MIU/L (0.465-4.680)
[2017-04-02] MEDS: BUDESONIDE (EC) 3 MG CAP PO SCH (08:15)
[2017-04-02] MEDS: NICOTINE (14 MG/24 HR) PATCH TRANSDERM SCH (08:15)
[2017-04-02] MEDS: metroNIDAZOLE 500 MG/NS (PMX) 100 ML IVPB SCH ×2 (13:45→23:36)
[2017-04-02] MEDS: morphine 2 MG INJ IV PRN ×3 (13:45→22:09)
--- NOTE | 2017-04-02 14:06 | CONS ---
Date/Time of Note Date/Time of Note DATE: 04/02/17 TIME: 13:46 Assessment/Plan Assessment/Plan Chief Complaint/Hosp Course Assessment: Rule out inflammatory bowel disease Crohn's/ulcerative colitis COPD Hypertension Schizophrenia Plan: Colonoscopy tomorrow Problems: Consultation Date/Type/Reason Admit Date/Time Date of Consultation: Apr 02, 2017 Reason for Consultation GI Hx of Present Illness 51-year-old homeless female admitted to ED for nausea vomiting and diarrhea . Patient is a poor historian due to psychiatric disorder. Her symptoms started 3 days prior to admission with abdominal pain and progressed to nausea vomiting and diarrhea. According to the patient she has a history of Crohn's disease, hypertension and COPD . She states that she has been diagnosed with colonoscopy and the last flareup and colonoscopy were 6 month ago. She is not on any maintenance medications for colitis due to homelessness. Patient states she is eating whatever she can find on the streets. Gastrointestinal: other (See HPI) Skin: skin lesions (Scabs on the forearm) Past Medical History History of schizophrenia, COPD, runs disease, and hypertension Medical History: hypertension Past Surgical History Cholecystectomy 2016 Past Surgical Hx: cholecystectomy Family History Significant Family History: cancer (Mother had bone marrow cancer) Social History Alcohol Use: none Smoking Status: Current every day smoker Drug Use: none Other Social History Homeless Exam/Review of Systems Vital Signs Vitals Vital Signs Date Time Temp Pulse Resp B/P Pulse Ox O2 Delivery O2 Flow Rate FiO2 04/02/17 06:01 98.3 89 16 129/99 100 Room Air Intake and Output 04/01/17 04/01/17 04/02/17 15:00 23:00 07:00 Intake Total 100 ml Balance 100 ml Exam PHYSICAL EXAMINATION: GENERAL: Well developed, well nourished, alert & oriented x 3, in no acute distress SKIN: No lesions, no stigmata chronic liver disease, no evidence of bleeding diathesis LYMPHATIC: No palpable lymphadenopathy. HEAD: Normocephalic, atraumatic, no tenderness. EYES: Pupils equal reactive to light and accommodation, full extraocular movements, sclera clear, non-icteric, no discharge. EARS/NOSE AND THROAT: Ears normal, nose normal, oropharynx normal, oral membranes well hydrated without lesions. NECK: Supple, no masses, thyroid normal, JVP within normal limits, carotids normal without bruits. CHEST: Inspection within normal limits. CARDIOVASCULAR: Heart: Regular rate and rhythm, no murmurs, gallops or rubs. Peripheral pulses present within normal limits, no cyanosis, clubbing or edemas. No pulsatile abdominal mass RESPIRATORY: Lungs clear to auscultation and percussion, no wheezing, no rubs GASTROINTESTINAL AND LIVER: Abdomen: Soft, generalized tenderness, non-distended , no hernias, no masses, no organomegaly, no ascites, no guarding, no rebound tenderness, normoactive bowel sounds. Rectal: Deferred. GENITOURINARY: Female genitalia within normal limits. EXTREMITIES: No cyanosis, clubbing or edema. Consultation was performed in collaboration with Dr. Cade Results Result Diagram: 04/02/17 0542 04/02/17 0542 Results 24 hrs Laboratory Tests Test 04/01/17 23:00 04/02/17 05:42 White Blood Count 11.6 H 9.2 # Red Blood Count 5.76 H 5.15 Hemoglobin 17.6 H 15.7 Hematocrit 51.6 H 46.7 Mean Corpuscular Volume 89.6 90.7 Mean Corpuscular Hemoglobin 30.6 30.5 Mean Corpuscular Hemoglobin Concent 34.1 33.6 Red Cell Distribution Width 12.5 12.4 Platelet Count 246 237 Mean Platelet Volume 9.5 9.2 Neutrophils % 75.3 56.7 Lymphocytes % 17.9 32.6 Monocytes % 5.0 8.1 Eosinophils % 1.1 1.6 Basophils % 0.4 0.7 Nucleated Red Blood Cells % 0.0 0.0 Neutrophils # 8.7 H 5.2 Lymphocytes # 2.1 3.0 H Monocytes # 0.6 0.8 Eosinophils # 0.1 0.2 Basophils # 0.1 0.1 Nucleated Red Blood Cells # 0.0 0.0 Prothrombin Time 12.6 Prothrombin Time Ratio 1.0 INR International Normalized Ratio 0.94 Activated Partial Thromboplast Time 33.2 Sodium Level 146 H 144 Potassium Level 4.3 3.9 Chloride Level 106 105 Carbon Dioxide Level 25 31 Anion Gap 19 H 12 # Blood Urea Nitrogen 14 16 Creatinine 0.84 0.89 Glucose Level 111 96 Lactic Acid Level 1.1 Calcium Level 10.1 9.2 Total Bilirubin 1.6 H 1.5 H Direct Bilirubin 0.00 0.00 Indirect Bilirubin 1.6 H 1.5 H Aspartate Amino Transf (AST/SGOT) 21 17 Alanine Aminotransferase (ALT/SGPT) 24 22 Alkaline Phosphatase 88 61 Troponin I < 0.012 Total Protein 8.1 6.9 # Albumin 4.6 3.8 Globulin 3.50 H 3.10 Albumin/Globulin Ratio 1.31 1.22 Erythrocyte Sedimentation Rate 1 Hemoglobin A1c 5.0 Magnesium Level 1.8 C-Reactive Protein 0.6 Triglycerides Level 98 Cholesterol Level 113 LDL Cholesterol, Calculated 54 HDL Cholesterol 39 Cholesterol/HDL Ratio 2.8 Carcinoembryonic Antigen 4.5 Thyroid Stimulating Hormone (TSH) 3.190 Medications Medications Current Medications Sodium Chloride (NS) 1,000 ml @ 80 mls/hr [id number] IV Last administered on 06:11; Admin Dose 80 MLS/HR; Start 04/02/17 at 03:00 Ondansetron HCl (Zofran Inj) 4 mg Q6H PRN IV NAUSEA AND/OR VOMITING; Start at 03:00 Acetaminophen (Tylenol Tab) 650 mg Q6H PRN PO PAIN LEVEL 1-3 OR FEVER; Start 04/02/17 at 03:00 Morphine Sulfate (morphine) 2 mg Q4H PRN IV SEVERE PAIN LEVEL 7-10; Start at 03:00 Pantoprazole 40 mg 40 mg DAILY@06 IV Last administered on 04/02/17 06:11; Admin Dose 40 MG; Start 04/02/17 at 06:00 Levofloxacin/ Dextrose 150 ml @ 100 mls/hr Q24H IVPB ; Start 04/03/17 at 02:45 Metronidazole (Flagyl 500 Mg (Pmx)) 100 ml @ 100 mls/hr Q8 IVPB ; Start at 13:00 Budesonide (Entocort Ec) 9 mg DAILY PO Last administered on 04/02/17 08:15; Admin Dose 9 MG; Start 04/02/17 at 09:00 Nicotine (Nicoderm 14 Mg/ 24hr) 1 patch DAILY TRANSDERM Last administered on 08:15; Admin Dose 1 PATCH; Start 04/02/17 at 09:00 Copies To: CC: RANULFO ADLER MD, ANASTASIA NP Apr 02, 2017 13:56
[2017-04-02] MEDS ORDERED: BISACODYL (EC) 5 MG TAB PO ONE (14:30)
[2017-04-02 15:05] VITALS: Ht 160 cm; Wt 56.9 kg
[2017-04-02] MEDS ORDERED: MAGNESIUM CITRATE 300 ML BTL PO ONE (17:30)
[2017-04-02] MEDS ORDERED: POLYETHYLENE GLYCOL 3350 119 GM POWDER PO ONE (18:30)
[2017-04-02] MEDS: ONDANSETRON 4 MG INJ IV PRN (22:10)
[2017-04-02 23:47] VITALS: BP 99/52; PULSE 60; RESP 17
[2017-04-03] VITALS (12 sets, daily range): BP systolic 84–111; BP diastolic 50–86; PULSE 50–63; RESP 18–32
[2017-04-03] MEDS: morphine 2 MG INJ IV PRN ×3 (03:33→23:02)
[2017-04-03] MEDS: ONDANSETRON 4 MG INJ IV PRN (03:33)
[2017-04-03] MEDS: SOD CHLORIDE 0.9% 1,000 ML IV SCH (04:00)
[2017-04-03] MEDS: LEVOFLOXACIN 750MG/D5W (PMX) 150 ML IVPB SCH (04:30)
[2017-04-03] MEDS: metroNIDAZOLE 500 MG/NS (PMX) 100 ML IVPB SCH ×3 (05:53→22:16)
[2017-04-03] MEDS: PANTOPRAZOLE 40 MG INJ IV SCH (05:53)
[2017-04-03] MEDS: SOD CHLORIDE 0.45% 1,000 ML IV SCH ×2 (05:53→20:18)
[2017-04-03] MEDS ORDERED: POLYETHYLENE GLYCOL 3350 119 GM POWDER PO ONE (06:00)
[2017-04-03] MEDS ORDERED: PANTOPRAZOLE 40 MG INJ IV SCH (06:00)
[2017-04-03] MEDS ORDERED: BISACODYL (EC) 5 MG TAB PO ONE (08:00)
[2017-04-03] MEDS: NICOTINE (14 MG/24 HR) PATCH TRANSDERM SCH (08:33)
[2017-04-03] MEDS: BUDESONIDE (EC) 3 MG CAP PO SCH (09:00)
--- NOTE | 2017-04-03 12:25 | PN ---
Date/Time of Note Date/Time of Note DATE: 04/03/17 TIME: 12:23 Assessment/Plan VTE Prophylaxis VTE Prophylaxis Intervention: LMWH Lines/Catheters IV Catheter Type (from Nrs): Peripheral IV Urinary Cath still in place: No Assessment/Plan Chief Complaint/Hosp Course 51 yo female with h/o UC presenting with abdominal pain. Imaging suggestive of UC flare vs infectious colitis Colitis: - treat with abx for now - colonoscopy to assess for UC - Management per GI Discharge following GI workup Problems: Subjective 24 Hr Interval Summary Free Text/Dictation Feels well, pain is controlled Awaiting colonsocopy today Exam/Review of Systems Vital Signs Vitals Vital Signs Date Time Temp Pulse Resp B/P Pulse Ox O2 Delivery O2 Flow Rate FiO2 04/03/17 07:48 98.3 55 18 99/62 95 04/03/17 06:09 Room Air Intake and Output 04/02/17 04/02/17 04/03/17 15:00 23:00 07:00 Intake Total 150 ml Balance 150 ml Exam Constitutional: alert, oriented, well developed Psych: nl mood/affect, no complaints Head: atraumatic, normocephalic Eyes: EOMI, PERRL, nl conjunctiva, nl lids, nl sclera ENMT: nl external ears & nose, nl lips & teeth, nl nasal mucosa & septum Neck: non-tender, supple Respiratory: clear to auscultation, normal air movement Cardiovascular: nl pulses, regular rate and rhythm Gastrointestinal: nl liver, spleen, non-tender, soft Musculoskeletal: nl extremities to inspection, nl gait and stance Extremities: normal pulses Neurological: [employer] II-XII intact, nl mental status, nl speech, nl strength Skin: nl turgor, No rash or lesions Lymph: nl lymph nodes Results Result Diagram: 04/02/17 0542 04/02/17 0542 Medications Medications Current Medications Ondansetron HCl (Zofran Inj) 4 mg Q6H PRN IV NAUSEA AND/OR VOMITING Last administered on 04/03/17t 03:33; Admin Dose 4 MG; Start 04/02/17 at 03:00 Acetaminophen (Tylenol Tab) 650 mg Q6H PRN PO PAIN LEVEL 1-3 OR FEVER; Start 04/02/17 at 03:00 Morphine Sulfate (morphine) 2 mg Q4H PRN IV SEVERE PAIN LEVEL 7-10 Last administered on 04/03/17 08:50; Admin Dose 2 MG; Start 04/02/17 at 03:00 Pantoprazole 40 mg 40 mg DAILY@06 IV Last administered on 04/03/17 05:53; Admin Dose 40 MG; Start 04/02/17 at 06:00 Levofloxacin/ Dextrose 150 ml @ 100 mls/hr Q24H IVPB Last administered on 04:30; Admin Dose 100 MLS/HR; Start 04/03/17 at 02:45 Metronidazole (Flagyl 500 Mg (Pmx)) 100 ml @ 100 mls/hr Q8 IVPB Last administered on 04/03/17 05:53; Admin Dose 100 MLS/HR; Start 04/02/17 at 13: 00 Budesonide (Entocort Ec) 9 mg DAILY PO Last administered on 04/02/17 08:15; Admin Dose 9 MG; Start 04/02/17 at 09:00 Nicotine 1 patch 1 patch DAILY TRANSDERM Last administered on 04/03/17 08:33 ; Admin Dose 1 PATCH; Start 04/02/17 at 09:00 Sodium Chloride (1/2 NS) 1,000 ml @ 70 mls/hr [id number] IV Last administered on 04/03/17 05:53; Admin Dose 70 MLS/HR; Start 04/03/17 at 06:00 CHRISTINE NASH MD Apr 03, 2017 12:25
[2017-04-03 14:09] LABS: ANA SCREEN NEGATIVE (NEGATIVE); MYELOPEROXIDASE ANTIBODY <1.0 AI; PROTEINASE-3 ANTIBODY <1.0 AI
[2017-04-03] MEDS ORDERED: LIDOCAINE 2% (SDV) 5 ML INJ ONE (15:40)
[2017-04-03] MEDS ORDERED: PROPOFOL 40 ML ONE (15:40)
--- NOTE | 2017-04-03 16:33 | OPPN ---
Date/Time of Note Date/Time of Note DATE: 04/03/17 TIME: 16:26 Proc Note GI Procedure Date 04/03/17 Indication: other (? Questionable Crohn's disease) Pre-procedure Diagnosis ? Questionable Crohn's disease Post-procedure Diagnosis Impression: Normal colonic mucosa. Random biopsies obtained Normal terminal ileum Plan: CT enterography DC budesonide IBD panel Procedure Performed: Colonoscopy (With biopsies, enteroscopy) Surgeon RANULFO ADLER MD See signature line Protective Services Officer none Anesthesia Type: MAC Anesthesiologist: KEITH MANZO MD Tourniquet Time none EBL none Transfusion required none Biopsy 1: Right side of the colon, left side of the colon Grafts/Implants none Tubes/Drains none Complication(s) none Disposition: PACU Procedure Description After informed consent, with the patient/relatives understanding the procedure, its indications and potential risks and complications, including but not limited to: Allergic reaction, bleeding, perforation, infection, and after all pertinent questions were answered to the patient's satisfaction, the patient/ relatives signed the witnessed informed consent. Following this, premedication was administered slowly IV push under careful cardiovascular and respiratory monitoring with pulse OXIMETRY, automatic blood pressure, and household cook. Once the sedative effect was achieved, the patient was placed in the left lateral decubitus position, digital rectal examination was performed. The colonoscope was then introduced and advanced under visual control throughout all segments of the colon including: the rectum, sigmoid, descending colon, splenic flexure, transverse colon, hepatic flexure, ascending colon and finally reaching the cecum which was clearly identified by transillumination, finger indentation and the ileocecal valve. Terminal ileum was entered and examined approximately 20 cm. Careful examination of the mucosa of the lower gastrointestinal tract both on insertion as well as withdrawal of the instrument disclosed the following findings: PREPARATION QUALITY: [Adequate], RECTAL EXAM: The anorectal area was visualized examined and digital rectal examination performed with the following findings: No evidence of perirectal disease, no masses. COLONIC MUCOSA: The mucosa of all segments of the colon was carefully examined and showed the following findings: the examined mucosa appears within normal limits. There is no evidence of inflammatory changes, diverticular formation, polyps or neoplasms, vascular malformation, or any other abnormality. The terminal ileum is normal. Random biopsies were obtained of the right and left side of the colon. The instrument was then withdrawn, the patient tolerated the procedure well and was transferred out of the Endoscopy Suite awake and in good condition to continue recovery under observation. Copies To: CC: RANULFO ADLER MD, MORDO MD Apr 03, 2017 16:33
[2017-04-03] MEDS ORDERED: BARIUM SULF 2% 450 ML BTL (BERRY SMOOTHIE) PO ONE (18:00)
[2017-04-03] MEDS ORDERED: BARIUM SULFATE 0.1% 450 ML BTL (VOLUMEN) PO ONE (18:04)
[2017-04-03] MEDS ORDERED: GLUCAGON 1 MG INJ IM ONE (21:00)
[2017-04-03] MEDS ORDERED: SOD CHLORIDE 0.9% 100 ML ONE (21:32)
[2017-04-03] MEDS ORDERED: IODIXANOL LOCM 100 ML BTL ONE (21:32)
[2017-04-03] MEDS ORDERED: PANTOPRAZOLE 40 MG INJ IV ONE (22:00)
[2017-04-04 01:12] LABS: HEMATOCRIT 41.4 % (37.0-47.0); HEMOGLOBIN 14.4 g/dl (12.0-16.0)
[2017-04-04] MEDS: LEVOFLOXACIN 750MG/D5W (PMX) 150 ML IVPB SCH (01:57)
[2017-04-04] MEDS: metroNIDAZOLE 500 MG/NS (PMX) 100 ML IVPB SCH ×3 (05:15→21:05)
[2017-04-04] MEDS: PANTOPRAZOLE 40 MG INJ IV SCH (05:15)
[2017-04-04] MEDS: SOD CHLORIDE 0.45% 1,000 ML IV SCH ×3 (05:18→20:03)
[2017-04-04 06:27] LABS: BASOPHILS % 0.7 % (0.0-2.0); EOSINOPHILS # 0.1 10^3/ul (0.0-0.5); EOSINOPHILS % 2.3 % (0.0-7.0); HEMATOCRIT 42.5 % (37.0-47.0); HEMOGLOBIN 14.3 g/dl (12.0-16.0); LYMPHOCYTES # 1.5 10^3/ul (0.8-2.9); LYMPHOCYTES % 24.3 % (15.0-51.0); MEAN CORPUSCULAR HGB CONC 33.6 g/dl (32.0-37.0); MEAN CORPUSCULAR VOLUME 89.3 fl (82.0-101.0); MEAN PLATELET VOLUME 9.6 fl (7.4-10.4); MONOCYTE # 0.5 10^3/ul (0.3-0.9); MONOCYTES % 7.5 % (0.0-11.0); NEUTROPHIL # 3.9 10^3/ul (1.6-7.5); NEUTROPHILS % 64.9 % (39.0-77.0); PLATELET COUNT 188 10^3/UL (140-415); RED BLOOD COUNT 4.76 10^6/ul (4.20-5.40); RED CELL DISTRIBUTION WIDTH 12.1 % (11.5-14.5)
[2017-04-04 07:08] LABS: CALCIUM 8.8 mg/dl (8.4-10.2); CREATININE 0.74 mg/dl (0.44-1.00); POTASSIUM 4.2 mmol/L (3.5-5.1)
[2017-04-04 08:11] VITALS: BP 102/62; RESP 18
--- NOTE | 2017-04-04 08:37 | RADRPT ---
PROCEDURE: CT Abdomen and Pelvis with contrast. CLINICAL INDICATION: Rule out small-bowel Crohn disease.. TECHNIQUE: CT scan of the abdomen and pelvis with contrast was performed on a multi-detector high- resolution CT scanner. The patient was scanned following the uncomplicated intravenous administrati on of 100 cc of Visipaque 320. The patient received 100 cc of all lumen orally. Coronal and sagittal reformatted images were obtained from the axial source images. Images were reviewed on a high-resol [employer] PACS workstation. One or the following dose reduction techniques were used: -Automated exposure control. -Adjustment of the mA and/or KV according to patient's size. -Use of iterative reconstruction technique. DICOM images are available. DOSE: CTDI: (Vol. ) 7.1 mGy, DLP: 362.47 mGy-cm COMPARISON: CT abdomen pelvis 04/02/2017. FINDINGS: Lung Bases: Unremarkable. GI:. Several proximal duodenal and jejunal loops demonstrate mild dilation with irregular mucosal th ickening and slight enhancement. There is also irregularity throughout the jejunum as well as ileum without dilation. Liver: Unremarkable. Gallbladder: Gallbladder is surgically absent with mild dilation of the common bile duct. Pancreas: Pancreas appears normal in size without mass identified. Spleen: Unremarkablel Adrenals: Unremarkable. Kidneys: Kidneys function symmetrically without evidence of urolithiasis or obstructive uropathy. Bladder: Unremarkable. Pelvic Organs: Unremarkable. Skeleton: Normal for age. Other: There is a tiny umbilical hernia containing fat. IMPRESSION: 1. Multiple dilated loops of proximal duodenum and jejunum with marked irregular mucosal thickening and postcontrast enhancement. Multiple nondilated loops of jejunum and ileum with some mucosal thick ening and enhancement as well. This is certainly consistent with enteritis and could be seen with C rohn's disease. 2. Previous cholecystectomy with mild dilation of the common bile duct of uncertain significance. 3. Mild scattered colonic diverticulosis without evidence of acute diverticulitis. RPTAT: [facility] Physician Prabhakar Date Time Electronically viewed and signed by Physician Prabhakar on 04/04/2017 08:37 /
[2017-04-04] MEDS: NICOTINE (14 MG/24 HR) PATCH TRANSDERM SCH (08:58)
[2017-04-04] MEDS ORDERED: FAMOTIDINE 20 MG INJ IV SCH (09:00)
[2017-04-04 12:30] LABS: HEMATOCRIT 41.6 % (37.0-47.0); HEMOGLOBIN 14.3 g/dl (12.0-16.0)
[2017-04-04 14:00] VITALS: BP 100/69; RESP 18
[2017-04-04 14:01] LABS: MYELOPEROXIDASE ANTIBODY <1.0 AI; PROTEINASE-3 ANTIBODY <1.0 AI
--- NOTE | 2017-04-04 16:33 | PN ---
Date/Time of Note Date/Time of Note DATE: 04/04/17 TIME: 16:31 Assessment/Plan VTE Prophylaxis VTE Prophylaxis Intervention: LMWH Lines/Catheters IV [facility] (from [facility] Saline Lock Urinary Cath still in place: No Assessment/Plan Chief Complaint/Hosp Course 51 yo female with h/o IBD presenting with abdominal pain. Imaging suggestive of IBD flare vs infectious colitis Colitis: - Continue treatment with abx - colonoscopy was unremarkable though CT suggestive of Crohns - Management per GI Tobacco use d/o: - Continue NRT patch Dispo following GI management Problems: Subjective 24 Hr Interval Summary Free Text/Dictation Colonoscopy performed yesterday to TI, unremarkable CT today suggestive of small bowel involvement of Crohns Patient feels well today, no complaints Exam/Review of Systems Vital Signs Vitals Vital Signs Date Time Temp Pulse Resp B/P Pulse Ox O2 Delivery O2 Flow Rate FiO2 04/04/17 14:00 98.3 59 18 100/69 95 04/03/17 16:46 Room Air Intake and Output 04/03/17 04/03/17 04/04/17 14:59 22:59 06:59 Intake Total 100 ml 480 ml 2370 ml Balance 100 ml 480 ml 2370 ml Exam Constitutional: alert, oriented, well developed Psych: nl mood/affect, no complaints Head: atraumatic, normocephalic Eyes: EOMI, PERRL, nl conjunctiva, nl lids, nl sclera ENMT: nl external ears & nose, nl lips & teeth, nl nasal mucosa & septum Neck: non-tender, supple Respiratory: clear to auscultation, normal air movement Cardiovascular: nl pulses, regular rate and rhythm Gastrointestinal: nl liver, spleen, non-tender, soft Musculoskeletal: nl extremities to inspection, nl gait and stance Extremities: normal pulses Neurological: MORTGAGE FUNDER II-XII intact, nl mental status, nl speech, nl strength Skin: nl turgor, No rash or lesions Lymph: nl lymph nodes Results Result Diagram: 04/04/17 1207 04/04/17 0528 Results 24 hrs Laboratory Tests Test 04/03/17 17:55 04/04/17 00:41 04/04/17 05:28 04/04/17 07:46 ANCA Screen NEGATIVE Proteinase 3 (PR3) Antibodies <1.0 Myeloperoxidase Antibody <1.0 Hemoglobin 14.4 14.3 Hematocrit 41.4 42.5 White Blood Count 6.0 # Red Blood Count 4.76 Mean Corpuscular Volume 89.3 Mean Corpuscular Hemoglobin 30.0 Mean Corpuscular Hemoglobin Concent 33.6 Red Cell Distribution Width 12.1 Platelet Count 188 # Mean Platelet Volume 9.6 Neutrophils % 64.9 Lymphocytes % 24.3 Monocytes % 7.5 Eosinophils % 2.3 Basophils % 0.7 Nucleated Red Blood Cells % 0.0 Neutrophils # 3.9 Lymphocytes # 1.5 Monocytes # 0.5 Eosinophils # 0.1 Basophils # 0.0 Nucleated Red Blood Cells # 0.0 Sodium Level 142 Potassium Level 4.2 Chloride Level 109 Carbon Dioxide Level 23 Anion Gap 14 Blood Urea Nitrogen 10 Creatinine 0.74 Glucose Level 68 #L Calcium Level 8.8 Bedside Glucose 84 Test 04/04/17 12:07 Hemoglobin 14.3 Hematocrit 41.6 Medications Medications Current Medications Ondansetron HCl (Zofran Inj) 4 mg Q6H PRN IV NAUSEA AND/OR VOMITING Last administered on 04/03/17 03:33; Admin Dose 4 MG; Start 04/02/17 at 03:00 Acetaminophen (Tylenol Tab) 650 mg Q6H PRN PO PAIN LEVEL 1-3 OR FEVER; Start 04/02/17 at 03:00 Morphine Sulfate 2 mg 2 mg Q4H PRN IV SEVERE PAIN LEVEL 7-10 Last administered on 04/03/17 23:02; Admin Dose 2 MG; Start 04/02/17 at 03:00 Levofloxacin/ Dextrose 150 ml @ 100 mls/hr Q24H IVPB Last administered on 01:57; Admin Dose 100 MLS/HR; Start 04/03/17 at 02:45 Metronidazole (Flagyl 500 Mg (Pmx)) 100 ml @ 100 mls/hr Q8 IVPB Last administered on 04/04/17 14:12; Admin Dose 100 MLS/HR; Start 04/02/17 at 13: 00 Nicotine 1 patch 1 patch DAILY TRANSDERM Last administered on 04/04/17 08:58 ; Admin Dose 1 PATCH; Start 04/02/17 at 09:00 Sodium Chloride (1/2 NS) 1,000 ml @ 70 mls/hr [id number] IV Last administered on 04/04/17 05:18; Admin Dose 70 MLS/HR; Start 04/03/17 at 06:00 Pantoprazole (Protonix Iv) 40 mg DAILY@06 IV Last administered on 04/04/17t 05 :15; Admin Dose 40 MG; Start 04/04/17 at 06:00 CHRISTINE NASH MD Apr 04, 2017 16:33
[2017-04-04 18:34] LABS: HEMATOCRIT 39.1 % (37.0-47.0); HEMOGLOBIN 13.8 g/dl (12.0-16.0)
--- NOTE | 2017-04-04 18:53 | PN ---
Date/Time of Note Date/Time of Note DATE: 04/04/17 TIME: 18:46 Assessment/Plan VTE Prophylaxis VTE Prophylaxis Intervention: ambulation Lines/Catheters IV [facility] Saline Lock Urinary Cath still in place: No Assessment/Plan Chief Complaint/Hosp Course Assessment: Crohn's small bowel COPD Hypertension Schizophrenia Plan: Mesalamine Course reviewed with nursing staff CT enterography c/w small bowel Crohn's Patient reports no pain, tolerating diet Will start mesalamine Appears safe for OP management PHYSICAL EXAMINATION: GENERAL: Well developed, well nourished, alert & oriented x 3, in no acute distress SKIN: No lesions, no stigmata chronic liver disease, no evidence of bleeding diathesis LYMPHATIC: No palpable lymphadenopathy. HEAD: Normocephalic, atraumatic, no tenderness. EYES: Pupils equal reactive to light and accommodation, full extraocular movements, sclera clear, non-icteric, no discharge. EARS/NOSE AND THROAT: Ears normal, nose normal, oropharynx normal, oral membranes well hydrated without lesions. NECK: Supple, no masses, thyroid normal, JVP within normal limits, carotids normal without bruits. CHEST: Inspection within normal limits. CARDIOVASCULAR: Heart: Regular rate and rhythm, no murmurs, gallops or rubs. Peripheral pulses present within normal limits, no cyanosis, clubbing or edemas. No pulsatile abdominal mass RESPIRATORY: Lungs clear to auscultation and percussion, no wheezing, no rubs GASTROINTESTINAL AND LIVER: Abdomen: Soft, generalized tenderness, non-distended , no hernias, no masses, no organomegaly, no ascites, no guarding, no rebound tenderness, normoactive bowel sounds. Rectal: Deferred. GENITOURINARY: Female genitalia within normal limits. EXTREMITIES: No cyanosis, clubbing or edema. Problems: Exam/Review of Systems Vital Signs Vitals Vital Signs Date Time Temp Pulse Resp B/P Pulse Ox O2 Delivery O2 Flow Rate FiO2 04/04/17 14:00 98.3 59 18 100/69 95 04/03/17 16:46 Room Air Intake and Output 04/03/17 04/03/17 04/04/17 15:00 23:00 07:00 Intake Total 100 ml 480 ml 2370 ml Balance 100 ml 480 ml 2370 ml Results Result Diagram: 04/04/17 1811 04/04/17 0528 Results 24 hrs Laboratory Tests Test 04/04/17 00:41 04/04/17 05:28 04/04/17 07:46 04/04/17 12:07 Hemoglobin 14.4 14.3 14.3 Hematocrit 41.4 42.5 41.6 White Blood Count 6.0 # Red Blood Count 4.76 Mean Corpuscular Volume 89.3 Mean Corpuscular Hemoglobin 30.0 Mean Corpuscular Hemoglobin Concent 33.6 Red Cell Distribution Width 12.1 Platelet Count 188 # Mean Platelet Volume 9.6 Neutrophils % 64.9 Lymphocytes % 24.3 Monocytes % 7.5 Eosinophils % 2.3 Basophils % 0.7 Nucleated Red Blood Cells % 0.0 Neutrophils # 3.9 Lymphocytes # 1.5 Monocytes # 0.5 Eosinophils # 0.1 Basophils # 0.0 Nucleated Red Blood Cells # 0.0 Sodium Level 142 Potassium Level 4.2 Chloride Level 109 Carbon Dioxide Level 23 Anion Gap 14 Blood Urea Nitrogen 10 Creatinine 0.74 Glucose Level 68 #L Calcium Level 8.8 Bedside Glucose 84 Test 04/04/17 18:11 Hemoglobin 13.8 Hematocrit 39.1 Medications Medications Current Medications Ondansetron HCl (Zofran Inj) 4 mg Q6H PRN IV NAUSEA AND/OR VOMITING Last administered on 04/03/17 03:33; Admin Dose 4 MG; Start 04/02/17 at 03:00 Acetaminophen (Tylenol Tab) 650 mg Q6H PRN PO PAIN LEVEL 1-3 OR FEVER; Start 04/02/17 at 03:00 Morphine Sulfate 2 mg 2 mg Q4H PRN IV SEVERE PAIN LEVEL 7-10 Last administered on 04/03/17 23:02; Admin Dose 2 MG; Start 04/02/17 at 03:00 Levofloxacin/ Dextrose 150 ml @ 100 mls/hr Q24H IVPB Last administered on 01:57; Admin Dose 100 MLS/HR; Start 04/03/17 at 02:45 Metronidazole (Flagyl 500 Mg (Pmx)) 100 ml @ 100 mls/hr Q8 IVPB Last administered on 04/04/17 14:12; Admin Dose 100 MLS/HR; Start 04/02/17 at 13: 00 Nicotine 1 patch 1 patch DAILY TRANSDERM Last administered on 04/04/17 08:58 ; Admin Dose 1 PATCH; Start 04/02/17 at 09:00 Sodium Chloride (1/2 NS) 1,000 ml @ 70 mls/hr [id number] IV Last administered on 04/04/17 05:18; Admin Dose 70 MLS/HR; Start 04/03/17 at 06:00 Pantoprazole (Protonix Iv) 40 mg DAILY@06 IV Last administered on 04/04/17 05 :15; Admin Dose 40 MG; Start 04/04/17 at 06:00 RANULFO ADLER MD Apr 04, 2017 18:53
[2017-04-04 19:30] VITALS: BP 116/72; RESP 22
[2017-04-04] MEDS ORDERED: BENZONATATE 100 MG CAP PO SCH (22:00)
[2017-04-04] MEDS: MESALAMINE (SR) 250 MG CAP PO SCH (22:16)
[2017-04-04] MEDS: ACETAMINOPHEN 325 MG TAB PO PRN (22:16)
[2017-04-04] MEDS: BUDESONIDE (EC) 3 MG CAP PO SCH (22:17)
[2017-04-05 01:08] LABS: HEMATOCRIT 37.5 % (37.0-47.0); HEMOGLOBIN 12.9 g/dl (12.0-16.0)
[2017-04-05 02:10] VITALS: BP 127/77; RESP 22
[2017-04-05] MEDS: LEVOFLOXACIN 750MG/D5W (PMX) 150 ML IVPB SCH (02:56)
[2017-04-05 05:12] LABS: HEMATOCRIT 38.8 % (37.0-47.0); HEMOGLOBIN 13.3 g/dl (12.0-16.0)
[2017-04-05] MEDS: metroNIDAZOLE 500 MG/NS (PMX) 100 ML IVPB SCH (06:00)
[2017-04-05] MEDS: PANTOPRAZOLE 40 MG INJ IV SCH (06:00)
[2017-04-05] MEDS: ACETAMINOPHEN 325 MG TAB PO PRN (07:32)
[2017-04-05 07:35] VITALS: BP 127/75; RESP 20
[2017-04-05] MEDS: MESALAMINE (SR) 250 MG CAP PO SCH (08:46)
[2017-04-05] MEDS: BUDESONIDE (EC) 3 MG CAP PO SCH (08:46)
[2017-04-05] MEDS: NICOTINE (14 MG/24 HR) PATCH TRANSDERM SCH (08:46)
[2017-04-05] MEDS ORDERED: BENZONATATE 100 MG CAP PO PRN (09:00)
[2017-04-05] MEDS ORDERED: MES250 PO (09:14)
--- NOTE | 2017-04-05 09:16 | PDOCDIS ---
Discharge Instructions DIAGNOSIS Discharge Diagnosis Crohns disease CONDITION Patient Condition: Good HOME CARE INSTRUCTIONS: Special Diet: N.p.o. except for medications (for colonoscopy tomorrow) FOLLOW UP/APPOINTMENTS Follow-up Plan Take mesalamine as prescribed for your Crohns disease. 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
--- NOTE | 2017-04-05 09:23 | DS ---
Date/Time of Note Date/Time of Note DATE: 04/05/17 TIME: 09:20 Discharge Summary Admission/Discharge Info Admit Date/Time Apr 02, 2017 at 02:47 Discharge Date/Time Discharge Diagnosis Crohns disease Patient Condition: Good Hospital Course The patient was admitted with abdominal pain and diarrhea. CT scan in the ED was suggestive of IBD. She was given empiric anitbiotics. She underwent colonoscopy which showed no evidence of large bowel or TI involvement. She then underwent CT enterography which showed "Multiple dilated loops of proximal duodenum and jejunum with marked irregular mucosal thickening and postcontrast enhancement. Multiple nondilated loops of jejunum and ileum with some mucosal thickening and enhancement as well. This is certainly consistent with enteritis and could be seen with Crohn's disease." She was thus started on mesalamine by Dr Goss. She was tolerating PO and without severe symptoms so was deemed safe for outpatient management. She will follow up with Dr Goss as an outpatient. Home Meds Active Scripts Mesalamine* (Pentasa*) 250 Mg Capsule.sa, 1000 MG PO QID for 30 Days, #120 TAB Prov:CHRISTINE NASH MD 04/05/17 Follow-up Plan Take mesalamine as prescribed for your Crohns disease. 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
== END 2017-04-05 11:31 | disposition home or self-care (01) | DRG 386 ==
LOC: E/R 18:16 → MS3 04-02 02:47 → MS1 04-03 05:45
PROVIDERS: ADMIT Family Medicine; ATTEND Family Medicine
PROC: 0DBF8ZX Excision of Right Large Intestine, Via Natural or Artificial Opening Endoscopic, Diagnostic (ICD-10-PCS; 2017-04-03)
PROC: 0DBG8ZX Excision of Left Large Intestine, Via Natural or Artificial Opening Endoscopic, Diagnostic (ICD-10-PCS; principal; 2017-04-03 18:30)
DX: K50.00 Crohn's disease of small intestine without complications (principal); F20.0 Paranoid schizophrenia; I10 Essential (primary) hypertension; J44.9 Chronic obstructive pulmonary disease, unspecified; F17.210 Nicotine dependence, cigarettes, uncomplicated; Z59.0 Homelessness; Z90.49 Acquired absence of other specified parts of digestive tract
CPT/HCPCS: 71010; 74176; 74177; 80048; 80053; 80061; 82378; 82962; 83036; 83605; 83735; 84443; 84484; 85014; 85018; 85025; 85610; 85651; 85730; 86021; 86038; 86140; 86850; 86900; 86901; 86920; 88305; 93005; C9113; J1610; J1956; J2270; J2405; J7030; Q9967

== ENCOUNTER 2017-04-12 11:31 | Emergency (ER) | payer OTHER ==
[~2017-04-12] VITALS: Wt 57.0 kg
[~2017-04-12 11:31] MED LIST changes: -DICY10CA60 PO; -DIVA500T7 PO; -LEVO25TA50 PO; +MES250 PO; -ONDA4TAB14 PO
--- NOTE | 2017-04-12 12:35 | ERD ---
ER Documentation Chief Complaint Chief Complaint headache, nausea/vomiting/diarrhea/stomach cramps x last night HPI 52-year-old female, with history of colitis, schizophrenia, presents to the emergency department complaining of headache, nausea, and diarrhea since last night. The diarrhea is described as watery, intermittent, 4 episodes in 24 hours, no blood, no mucus, the diarrhea is associated with mild, intermittent, cramping abdominal pain 4/10. The patient was discharged from [facility] 1 week ago with diagnosis of colitis. Denies fevers, chills, no chest pain, no shortness of breath, no rectal bleeding, no urinary symptoms. ROS A 12-point review of systems was performed and negative other than presented in the history of present illness. SYSTEMIC symptoms: no fever, chills, no night sweats, no weight loss EYE symptoms: No blurred vision, no eye discharge OTOLARYNGEAL symptoms: No hearing loss. No ear pain, no sore throat CARDIOVASCULAR symptoms: No chest pain or discomfort, no palpitations. PULMONARY symptoms: No dyspnea, no cough, no wheezing. GASTROINTESTINAL symptoms: No abdominal pain, no nausea, no vomiting, + diarrhea MUSCULOSKELETAL symptoms: No arthralgias, no muscle aches. NEUROLOGY symptoms: No confusion, no syncope, no numbness or tingling. SKIN: No rashes Medications Home Meds Active Scripts Hydrocodone/Acetaminophen ([place] 5-325 Tablet) 1 Each Tablet, 1 TAB PO Q6H Y for PAIN, #12 TAB Prov:RENETTA HERNANDEZ MD 04/12/17 Ciprofloxacin Hcl* (Ciprofloxacin Hcl*) 250 Mg Tablet, 250 MG PO BID, #14 TAB Prov:RENETTA HERNANDEZ MD 04/12/17 Mesalamine* (Pentasa*) 250 Mg Capsule.sa, 1000 MG PO QID for 30 Days, #120 TAB Prov:CHRISTINE NASH MD 04/05/17 Allergies Allergies: Coded Allergies: Penicillins (Verified Allergy, Severe, SWOLLEN THROAT, 04/12/17) PMhx/Soc History of Surgery: Yes (GAL BLADDER) Anesthesia Reaction: No Hx Neurological Disorder: No Hx Respiratory Disorders: Yes (ASTHMA, COPD) Hx Cardiac Disorders: Yes (HTN) Hx Psychiatric Problems: Yes (ANXIETY , paranoid schizophrenia) Hx Miscellaneous Medical Probl: No Hx Alcohol Use: No Hx Substance Use: Yes (NO DRINKING OR DRUGS X20 YEARS) Hx Tobacco Use: Yes Physical Exam Vitals Vital Signs Date Time Temp Pulse Resp B/P Pulse Ox O2 Delivery O2 Flow Rate FiO2 04/12/17 16:45 98.2 56 20 103/57 94 Room Air 04/12/17 11:41 98.6 90 20 147/99 96 Physical Exam Patient is in no acute distress, vital signs stable. Alert and fully oriented. EYES: PERRLA, EOMI, Sclera and conjunctiva appear normal. EARS: Canals clear, tympanic membranes WNL THROAT: Normal oropharynx. NECK: Supple, No lymphadenopathy. Full ROM without pain or tenderness. HEART: RRR, no rubs, murmurs, clicks or gallops. LUNGS: Clear to auscultation. ABDOMEN: Soft, non-tender without masses or hepatosplenomegaly. No peritoneal signs EXTREMITIES: No edema bilaterally. BACK: Full ROM, no deformity, normal back exam NEURO: Cranial nerves grossly intact, no motor or sensory deficit Result Diagram: 04/12/17 1315 04/12/17 1315 Results 24 hrs Laboratory Tests Test 04/12/17 13:05 04/12/17 13:15 Urine Color YELLOW Urine Clarity CLEAR Urine pH 5.0 Urine Specific [place] 1.006 Urine Ketones NEGATIVEmg/dL Urine Nitrite NEGATIVEmg/dL Urine Bilirubin NEGATIVEmg/dL Urine Urobilinogen NEGATIVEmg/dL Urine Leukocyte Esterase TRACELeu/ul Urine Microscopic RBC 1/HPF Urine Microscopic WBC 3/HPF Urine Squamous Epithelial Cells FEW/HPF Urine Hemoglobin 2+mg/dL Urine Glucose NEGATIVEmg/dL Urine Total Protein NEGATIVEmg/dl White Blood Count 10.910^3/ul Red Blood Count 5.4510^6/ul Hemoglobin 16.7g/dl Hematocrit 48.9% Mean Corpuscular Volume 89.7fl Mean Corpuscular Hemoglobin 30.6pg Mean Corpuscular Hemoglobin Concent 34.2g/dl Red Cell Distribution Width 13.2% Platelet Count 61034^3/UL Mean Platelet Volume 9.4fl Neutrophils % 73.4% Lymphocytes % 18.3% Monocytes % 5.5% Eosinophils % 1.9% Basophils % 0.6% Nucleated Red Blood Cells % 0.0/100WBC Neutrophils # 8.010^3/ul Lymphocytes # 2.010^3/ul Monocytes # 0.610^3/ul Eosinophils # 0.210^3/ul Basophils # 0.110^3/ul Nucleated Red Blood Cells # 0.010^3/ul Sodium Level 145mmol/L Potassium Level 4.0mmol/L Chloride Level 105mmol/L Carbon Dioxide Level 29mmol/L Anion Gap 15 Blood Urea Nitrogen 9mg/dl Creatinine 0.75mg/dl Glucose Level 95mg/dl Calcium Level 9.7mg/dl Total Bilirubin 1.4mg/dl Direct Bilirubin 0.00mg/dl Indirect Bilirubin 1.4mg/dl Aspartate Amino Transf (AST/SGOT) 24IU/L Alanine Aminotransferase (ALT/SGPT) 36IU/L Alkaline Phosphatase 83IU/L Total Protein 7.6g/dl Albumin 4.5g/dl Globulin 3.10g/dl Albumin/Globulin Ratio 1.45 Lipase 78U/L Current Medications Medications (Trade) Dose Ordered Sig/[place] Route PRN Reason Start Time Stop Time Status Last Admin Dose Admin Sodium Chloride (NS) 500 ml @ 500 mls/hr Q1H STAT IV 04/12/17 12:42 04/12/17 13:41 DC 04/12/17 13:19 Morphine Sulfate (morphine) 2 mg ONCE STAT IV 04/12/17 12:42 04/12/17 12:43 DC 04/12/17 13:40 Ondansetron HCl (Zofran Inj) 4 mg ONCE STAT IV 04/12/17 12:42 04/12/17 12:43 DC 04/12/17 13:40 Methylprednisolone Sodium Succinate 125 mg 125 mg ONCE ONCE IV 04/12/17 14:30 04/12/17 14:31 DC 04/12/17 15:18 Ciprofloxacin/ Dextrose (Cipro Ivpb) 200 ml @ 200 mls/hr ONCE ONCE IVPB 04/12/17 14:30 04/12/17 15:29 DC 04/12/17 15:29 Morphine Sulfate (morphine) 2 mg ONCE STAT IV 04/12/17 14:12 04/12/17 14:15 DC 04/12/17 15:18 Procedures/MDM 51-year-old female patient with multiple medical problems including schizophrenia and most recently colitis, presents to the ED c/o diarrhea for 2 days associated with a mild intermittent cramping abdominal pain. Vital signs stable, Physical exam unremarkable, abdomen benign. Differential diagnosis include but not limited to: UTI, colitis, gastroenteritis , kidney stones, irritable bowel syndrome, inflammatory bowel syndrome, malabsorption syndrome, cholelithiasis, food intolerance, medication side effect , pancreatitis, diverticulitis, bowel obstruction. Low suspicion for acute abdomen or systemic infection. Pertinent Data: Labs: CBC: normal, CMP: normal kidney and liver function, normal electrolytes. Lipase: normal Physical examination and clinical presentation consistent most likely with colitis. During the ED course the patient remained stable, no new complaints. The patient received treatment with ciprofloxacin IV, IV fluids and Zofran presenting overall improvement of the symptoms. Results and clinical impression discussed with patient who agrees with management. The patient is stable to be treated outpatient and will be discharged home, some side effects of prescribed medications (headache, rash, nausea, vomiting, diarrhea, drowsiness, habituation, bleeding, hypertension, interactions with other medications) were reviewed. The patient was instructed to follow up with the primary care provider in the next 48h. If symptoms persist, worsen or new symptoms develop, then patient should return to the ED immediately. Instructions explained and given directly by me to the patient in [place] with acknowledgment and demonstrated understanding. Disclaimer: Inadvertent spelling and grammatical errors are likely due to EHR/ dictation software use and do not reflect on the overall quality of patient care. Also, please note that the electronic time recorded on this note does not necessarily reflect the actual time of the patient encounter. Departure Diagnosis: Primary Impression: Abdominal pain Additional Impression: Colitis Condition: Stable Additional Instructions: Call your primary care doctor TOMORROW for an appointment during the next 1-2 days. See the doctor sooner or return here if your condition worsens before your appointment time. Thank you very much for allowing us to participate in your care. Your health and safety is our top priority at [facility]. Have prescriptions filled and follow precisely the directions on the label. Follow-up with primary care provider during the next 4 days and bring all the information and medications prescribed. If illness has not improved in 2 days, then make an appointment with primary care provider. If the provider is unavailable, return to the Emergency Department immediately. RENETTA HERNANDEZ MD Apr 12, 2017 12:35
[2017-04-12] MEDS ORDERED: SOD CHLORIDE 0.9% 500 ML IV STA (12:42)
[2017-04-12] MEDS ORDERED: morphine 2 MG INJ IV STA ×2 (12:42→14:12)
[2017-04-12] MEDS ORDERED: ONDANSETRON 4 MG INJ IV STA (12:42)
[2017-04-12 13:16] LABS: ADD UMIC YES; UR ASCORBIC ACID NEGATIVE (NEGATIVE); UR BILIRUBIN (Dip) NEGATIVE (NEGATIVE); UR BLOOD (Dip) 2+ mg/dL (NEGATIVE); UR CLARITY CLEAR (CLEAR); UR COLOR YELLOW (YELLOW); UR GLUCOSE (Dip) NEGATIVE (NEGATIVE); UR KETONES (Dip) NEGATIVE (NEGATIVE); UR LEUKOCYTE ESTERASE (Dip) TRACE Leu/ul (NEGATIVE); UR NITRITE (Dip) NEGATIVE (NEGATIVE); UR RBC 1 /HPF (0-5); UR SPECIFIC GRAVITY (Dip) 1.006 (1.003-1.030); UR SQUAMOUS EPITHELIAL CELL FEW /HPF (FEW); UR TOTAL PROTEIN (Dip) NEGATIVE (NEGATIVE); UR UROBILINOGEN (Dip) NEGATIVE (NEGATIVE)
[2017-04-12 13:40] LABS: BASOPHIL # 0.1 10^3/ul (0.0-0.1); BASOPHILS % 0.6 % (0.0-2.0); EOSINOPHILS # 0.2 10^3/ul (0.0-0.5); EOSINOPHILS % 1.9 % (0.0-7.0); HEMATOCRIT 48.9 % (37.0-47.0); HEMOGLOBIN 16.7 g/dl (12.0-16.0); LYMPHOCYTES % 18.3 % (15.0-51.0); MEAN CORPUSCULAR HEMOGLOBIN 30.6 pg (29.0-33.0); MEAN CORPUSCULAR HGB CONC 34.2 g/dl (32.0-37.0); MEAN CORPUSCULAR VOLUME 89.7 fl (82.0-101.0); MEAN PLATELET VOLUME 9.4 fl (7.4-10.4); MONOCYTE # 0.6 10^3/ul (0.3-0.9); MONOCYTES % 5.5 % (0.0-11.0); NEUTROPHILS % 73.4 % (39.0-77.0); PLATELET COUNT 269 10^3/UL (140-415); RED BLOOD COUNT 5.45 10^6/ul (4.20-5.40); RED CELL DISTRIBUTION WIDTH 13.2 % (11.5-14.5); WHITE BLOOD COUNT 10.9 10^3/ul (4.8-10.8)
[2017-04-12 14:03] LABS: ALBUMIN 4.5 g/dl (3.3-4.9); ALBUMIN/GLOBULIN RATIO 1.45; BILIRUBIN,INDIRECT 1.4 mg/dl (0-1.1); BILIRUBIN,TOTAL 1.4 mg/dl (0.2-1.3); CALCIUM 9.7 mg/dl (8.4-10.2); CREATININE 0.75 mg/dl (0.44-1.00); TOTAL PROTEIN 7.6 g/dl (6.1-8.1)
[2017-04-12] MEDS ORDERED: METHYLPREDNISOLONE 125 MG INJ IV ONE (14:30)
[2017-04-12] MEDS ORDERED: CIPROFLOXACIN 400MG/D5W 200 ML IVPB ONE (14:30)
[2017-04-12] MEDS ORDERED: HYDR-906 PO (16:03)
[2017-04-12] MEDS ORDERED: CIPR-193 PO (16:03)
[2017-04-12 16:45] VITALS: BP 103/57; PULSE 56; RESP 20; TEMP 98.2
== END 2017-04-12 16:48 | disposition home or self-care (01) ==
LOC: FTE 11:31
DX: K52.9 Noninfective gastroenteritis and colitis, unspecified (principal); J44.9 Chronic obstructive pulmonary disease, unspecified; J45.909 Unspecified asthma, uncomplicated; I10 Essential (primary) hypertension; Z87.891 Personal history of nicotine dependence
CPT/HCPCS: 36415; 80053; 81001; 83690; 85025; 96374; 96375; 96376; J0744; J2270; J2405; J2930; J7040; Z7502